=== PATIENT | female | born 1965 | race American Indian/Alaskan Native ===

== ENCOUNTER 2016-05-24 10:21 | Emergency (ER) | payer OTHER ==
[2016-05-24 10:21] VITALS: BMI 46.1
[2016-05-24] MEDS ORDERED: DiphenhydrAMINE 50 mg/ml Inj IVP STA (10:37)
--- NOTE | 2016-05-24 10:42 | ED PDOC ---
Arrival/HPI - General Chief Complaint: Headache Time Seen by Provider: 05/24/16 10:23 Historian: Patient - History of Present Illness Narrative History of Present Illness (Text): 05/24/16 10:38 Brittnee Lozoya is a 51 year old female, with a history of asthma, presents to emergency department complaining of frontal headache associated with mild nausea for the past 3 days. Reports that pain is worse immediately after waking up in the mornings. Notes she has experienced migraine headache in her childhood, Denies any fever, chills, dizziness, vision changes, chest pain, shortness of breath, vomiting, diarrhea, urinary symptoms or any other complaints at this time. 05/24/16 17:31 Time/Duration: < week (3 days ) Symptom Onset: Gradual Symptom Course: Unchanged Severity Level: Mild Activities at Onset: Light Past Medical History - Provider Review Nursing Documentation Reviewed: Yes - Infectious Disease Hx of Infectious Diseases: None - Pulmonary Hx Asthma: Yes (mild) - Psychiatric Hx Substance Use: No - Anesthesia Hx Anesthesia Reactions: No Hx Malignant Hyperthermia: No Family/Social History - Physician Review Nursing Documentation Reviewed: Yes Family/Social History: No Known Family HX Smoking Status: Never Smoked Hx Alcohol Use: No Hx Substance Use: No Allergies/Home Meds Allergies/Adverse Reactions: Allergies No Known Allergies Allergy (Verified 12/01/15 07:19) Review of Systems - Physician Review All systems were reviewed & negative as marked: Yes - Review of Systems Constitutional: Normal. absent: Fatigue, Fevers Eyes: Normal. absent: Vision Changes Respiratory: Normal. absent: SOB, Cough Cardiovascular: Normal. absent: Chest Pain Gastrointestinal: Nausea. absent: Abdominal Pain, Diarrhea, Vomiting Neurological: Headache. absent: Dizziness, Focal Weakness Psychiatric: Normal Physical Exam Vital Signs Reviewed: Yes Vital Signs Temp Pulse Resp BP Pulse Ox 05/24/16 12:00 98.0 F 69 18 128/76 99 05/24/16 11:24 75 18 131/89 98 05/24/16 10:21 98.3 F 79 16 133/93 H 98 Temperature: Afebrile Blood Pressure: Normal Pulse: Regular Respiratory Rate: Normal Appearance: Positive for: Well-Appearing, Non-Toxic, Comfortable Pain Distress: None Mental Status: Positive for: Alert and Oriented X 3 - Systems Exam Head: Present: Atraumatic, Normocephalic Pupils: Present: PERRL Extroacular Muscles: Present: EOMI Conjunctiva: Present: Normal Respiratory/Chest: Present: Clear to Auscultation, Good Air Exchange. No: Respiratory Distress, Accessory Muscle Use Cardiovascular: Present: Regular Rate and Rhythm, Normal S1, S2. No: Murmurs Abdomen: Present: Normal Bowel Sounds. No: Tenderness, Distention, Peritoneal Signs Neurological: Present: GCS=15, CN II-XII Intact, Speech Normal, Motor Func Grossly Intact, Normal Sensory Function Skin: Present: Warm, Dry, Normal Color. No: Rashes Psychiatric: Present: Alert, Oriented x 3, Normal Insight, Normal Concentration Medical Decision Making ED Course and Treatment: 05/24/16 10:43 Impression: A 51 year old female who presents to the emergency department complaining of frontal headache associated with mild nausea for past 3 days. Plan: -- CT Head -- Labs -- Benadryl -- Reglan -- HCG -- Reassess and disposition Progress Notes: 05/24/16 11:48 CT Head results reviewed: Impression: Normal CT of head 05/24/16 12:14 pt reassesed. no thunderclap features. pain resolved. labs, head ct neg. pt asking for d/c, rather than further observation in er. ambulatory, neuro intact. outpt f/u and return precautions advised - Lab Interpretations Lab Results: 05/24/16 11:10 05/24/16 11:10 Lab Results 05/24/16 11:10: WBC 7.9, RBC 4.01, Hgb 11.3 L, Hct 33.7 L, MCV 84.0, MCH 28.2, MCHC 33.5, RDW 13.9, Plt Count 290, MPV 8.5, Gran % 66.5, Lymph % (Auto) 26.6, [place] % (Auto) 6.0, Eos % (Auto) 0.8 L, Baso % (Auto) 0.1, Gran # 5.24, Lymph # 2.1, [place] # 0.5, Eos # 0.1, Baso # 0.01, PT 10.9, INR 1.01, APTT 28.8, Sodium 136, Potassium 4.0, Chloride 101, Carbon Dioxide 27, Anion Gap 12, BUN 11, Creatinine 0.7, Est GFR ( Amer) > 60, Est GFR (Non-Af Amer) > 60, Random Glucose 104, Calcium 8.7, Total Bilirubin 0.7, AST 26, ALT 10, Alkaline Phosphatase 52, Total Protein 7.5, Albumin 3.7, Globulin 3.8, Albumin/Globulin Ratio 1.0 L 05/24/16 10:50: Urine HCG, Qual Negative I have reviewed the lab results: Yes - RAD Interpretation Narrative RAD Interpretations (Text): PROCEDURE: CT HEAD WITHOUT CONTRAST. FINDINGS: HEMORRHAGE: No intracranial hemorrhage. BRAIN: No mass effect or edema. No atrophy or chronic microvascular ischemic changes. VENTRICLES: Unremarkable. No hydrocephalus. CALVARIUM: Unremarkable. PARANASAL SINUSES: Unremarkable as visualized. No significant inflammatory changes. MASTOID AIR CELLS: Unremarkable as visualized. No inflammatory changes. OTHER FINDINGS: None. IMPRESSION: Normal CT of the Head. 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 - Medication Orders Current Medication Orders: Discontinued Medications Diphenhydramine HCl (Benadryl) 25 mg IVP STAT STA Stop: 05/24/16 10:38 Last Admin: 05/24/16 11:37 Dose: 25 MG IVP Administration Document 05/24/16 11:37 EQ (Rec: 05/24/16 11:37 EQ [facility] [id number]) Charges for Administration # of IVP Administrations 1 Metoclopramide HCl 10 mg/ (Sodium Chloride) 52 mls @ 200 mls/hr IV STAT STA Stop: 05/24/16 10:52 Last Admin: 05/24/16 11:37 Dose: 200 MLS/HR eMAR Start Stop Document 05/24/16 11:37 EQ (Rec: 05/24/16 11:37 EQ [facility] [id number]) Intravenous Solution Start Date 05/24/16 Start Time 11:37 Metoclopramide HCl (Reglan) Confirm Administered Dose 10 mg .ROUTE .STK-MED ONE Stop: 05/24/16 10:51 Last Admin: 05/24/16 11:37 Dose: - Scribe Statement The provider has reviewed the documentation as recorded by the Mushtaq Rodriguez Provider Attestation: All medical record entries made by the Nicolasibamairani were at my direction and personally dictated by me. I have reviewed the chart and agree that the record accurately reflects my personal performance of the history, physical exam, medical decision making, and the department course for this patient. I have also personally directed, reviewed, and agree with the discharge instructions and disposition. Disposition/Present on Arrival - Present on Arrival Any Indicators Present on Arrival: No History of DVT/PE: No History of Uncontrolled Diabetes: No Urinary Catheter: No History of Decub. Ulcer: No History Surgical Site Infection Following: None - Disposition Have Diagnosis and Disposition been Completed?: Yes Diagnosis: Headache Disposition: HOME/ ROUTINE Disposition Time: 12:15 Condition: STABLE Discharge Instructions (ExitCare): Acute Headache (ED) Additional Instructions: please follow up with your doctor. return to er with worsening symptoms or concerns. Prescriptions: Acetaminophen/Butalbital/Caf [Fioricet] 1 tab PO Q8 PRN #20 tab PRN Reason: Headache Referrals: PCP,NO [Primary Care Provider] - Follow up with primary
--- NOTE | 2016-05-24 11:16 | CT ---
PROCEDURE: CT HEAD WITHOUT CONTRAST. HISTORY: sosa COMPARISON: None available. TECHNIQUE: Axial computed tomography images were obtained through the head/brain without intravenous contrast. This CT exam was performed using one or more of the following dose reduction techniques: Automated exposure control, adjustment of the mA and/or kV according to patient size, and/or use of iterative reconstruction technique. Radiation dose: Total exam DLP = 725 mGy-cm. FINDINGS: HEMORRHAGE: No intracranial hemorrhage. BRAIN: No mass effect or edema. No atrophy or chronic microvascular ischemic changes. VENTRICLES: Unremarkable. No hydrocephalus. CALVARIUM: Unremarkable. PARANASAL SINUSES: Unremarkable as visualized. No significant inflammatory changes. MASTOID AIR CELLS: Unremarkable as visualized. No inflammatory changes. OTHER FINDINGS: None. IMPRESSION: Normal CT of the Head.
[2016-05-24 11:24] VITALS: RESP 18
[2016-05-24 11:47] LABS: ADD MANUAL DIFF? NO
[2016-05-24 11:51] LABS: BASO # 0.01 K/mm3 (0.0-2.0); BASO % 0.1 % (0.0-3.0); EOS # 0.1 (0.0-0.7); EOS % 0.8 % (1.5-5.0); GRAN # 5.24 (1.4-6.5); GRAN % 66.5 % (50.0-68.0); HEMATOCRIT 33.7 % (36.0-48.0); LYMPH # 2.1 (1.2-3.4); LYMPH % 26.6 % (22.0-35.0); MEAN CORPUSCULAR HEMOGLOBIN 28.2 pg (25.0-35.0); MEAN CORPUSCULAR HGB CONC 33.5 g/dl (31.0-37.0); MEAN PLATELET VOLUME 8.5 fl (7.0-11.0); MONO # 0.5 (0.1-0.6); PLATELET COUNT 290 10^3/uL (120.0-450.0); RED CELL DISTRIBUTION WIDTH 13.9 % (11.5-14.5); WHITE BLOOD COUNT 7.9 10^3/ul (4.5-11.0)
[2016-05-24 11:59] LABS: INR 1.01 (0.93-1.08); PARTIAL THROMBOPLASTIN TIME 28.8 Seconds (23.7-30.8)
[2016-05-24 12:01] LABS: ALKALINE PHOSPHATASE 52 U/L (38-133); ALT/SGPT 10 U/L (7-56); AST/SGOT 26 U/L (15-39); BILIRUBIN,TOTAL 0.7 mg/dL (0.2-1.3); BLOOD UREA NITROGEN 11 mg/dL (7-21); CALCIUM 8.7 mg/dL (8.4-10.5); CARBON DIOXIDE 27 mmol/L (21-33); CHLORIDE 101 mmol/L (98-107); GFR AFRICAN-AMERICAN > 60; GLUCOSE,RANDOM 104 mg/dL (70-110); SODIUM 136 mmol/L (132-148); TOTAL PROTEIN 7.5 g/dL (5.8-8.3)
[2016-05-24 12:21] VITALS: BP 128/76; PULSE 69; TEMP 98; O2SAT 99
== END 2016-05-24 12:21 | disposition home or self-care (01) ==
LOC: ED 10:21
DX: R51 Headache (principal)
CPT/HCPCS: 70450; 80053; 84703; 85025; 85610; 85730; 96374; 99285; J1200; J2765

== ENCOUNTER 2016-08-01 13:48 | Emergency (ER) | payer OTHER ==
[2016-08-01 13:49] VITALS: BMI 46.1
--- NOTE | 2016-08-01 14:11 | ED PDOC ---
Arrival/HPI - General Chief Complaint: ENT Problem Time Seen by Provider: 08/01/16 13:49 Historian: Patient - History of Present Illness Time/Duration: Other (1 day) Symptom Onset: Gradual Symptom Course: Worsening Severity Level: Mild Activities at Onset: Rest Associated Symptoms (Text): 08/01/16 14:09 Patient complains of a sore throat beginning yesterday. No cough congestion or URI. No fever. No dysphagia. Past Medical History - Infectious Disease Hx of Infectious Diseases: None - Reproductive Menopause: Yes - Cardiac Hx Cardiac Disorders: No - Pulmonary Hx Asthma: Yes (mild) - Neurological Hx Neurological Disorder: No - HEENT Hx HEENT Disorder: No - Renal Hx Renal Disorder: No - Endocrine/Metabolic Hx Endocrine Disorders: No - Hematological/Oncological Hx Blood Disorders: No - Integumentary Hx Dermatological Disorder: No - Musculoskeletal/Rheumatological Hx Musculoskeletal Disorders: No - Gastrointestinal Hx Gastrointestinal Disorders: No - Genitourinary/Gynecological Hx Genitourinary Disorders: No - Psychiatric Hx Psychophysiologic Disorder: No Hx Substance Use: No - Anesthesia Hx Anesthesia Reactions: No Hx Malignant Hyperthermia: No Family/Social History - Physician Review Nursing Documentation Reviewed: Yes Family/Social History: Unknown Family HX Smoking Status: Never Smoked Hx Alcohol Use: No Hx Substance Use: No Allergies/Home Meds Allergies/Adverse Reactions: Allergies No Known Allergies Allergy (Verified 08/01/16 14:00) Review of Systems - Physician Review All systems were reviewed & negative as marked: Yes Physical Exam Vital Signs Temp Pulse Resp BP Pulse Ox 08/01/16 14:01 99.0 F 93 H 16 148/90 97 Temperature: Afebrile Blood Pressure: Normal Pulse: Regular Respiratory Rate: Normal Appearance: Positive for: Well-Appearing, Non-Toxic, Comfortable Pain Distress: None Mental Status: Positive for: Alert and Oriented X 3 - Systems Exam Pupils: Present: PERRL Extroacular Muscles: Present: EOMI Conjunctiva: Present: Normal Ears: Present: NORMAL TM, Normal Canal. No: Erythema Mouth: Present: Moist Mucous Membranes Pharnyx: Present: ERYTHEMA. No: EXUDATE, TONSILS ENLARGED, Peritonsilar Swelling, Soft Palate/Uvular Edema Neck: Present: Normal Range of Motion. No: Lymphadenopathy Respiratory/Chest: Present: Clear to Auscultation, Good Air Exchange. No: Respiratory Distress, Accessory Muscle Use Cardiovascular: Present: Regular Rate and Rhythm, Normal S1, S2. No: Murmurs Skin: Present: Warm, Dry, Normal Color. No: Rashes Disposition/Present on Arrival - Present on Arrival Any Indicators Present on Arrival: No History of DVT/PE: No History of Uncontrolled Diabetes: No Urinary Catheter: No History of Decub. Ulcer: No History Surgical Site Infection Following: None - Disposition Have Diagnosis and Disposition been Completed?: Yes Diagnosis: Pharyngitis Disposition Time: 14:10 Patient Plan: Discharge Condition: GOOD Discharge Instructions (ExitCare): Pharyngitis (ED) Additional Instructions: Tylenol or Advil as directed on bottle as needed. Cepacol or Cepastat as directed on bottle as needed. Symptomatic treatment. Follow-up with PMD. Follow up in ER as needed. Prescriptions: Amoxicillin [Amoxil 250 mg Cap] 250 mg PO TID #21 cap
[2016-08-01 14:13] VITALS: BP 148/90; PULSE 93; RESP 16; TEMP 99; O2SAT 97
== END 2016-08-01 14:19 | disposition home or self-care (01) ==
LOC: ED 13:48
DX: J02.9 Acute pharyngitis, unspecified (principal)

== ENCOUNTER 2017-01-08 18:27 | Emergency (ER) | payer OTHER ==
[2017-01-08 18:27] VITALS: BMI 46.1
[2017-01-08 18:50] VITALS: O2SAT 98
[2017-01-08] MEDS ORDERED: DiphenhydrAMINE 50 mg/ml Inj IVP STA (19:48)
[2017-01-08] MEDS ORDERED: Sodium Chloride 0.9% 1,000 ML IV SCH (20:00)
[2017-01-08 20:41] LABS: BASO # 0.01 K/mm3 (0.0-2.0); BASO % 0.1 % (0.0-3.0); EOS % 0.4 % (1.5-5.0); GRAN # 5.23 (1.4-6.5); GRAN % 65.3 % (50.0-68.0); LYMPH # 2.2 (1.2-3.4); LYMPH % 27.6 % (22.0-35.0); MEAN CELL VOLUME 87.1 fl (80.0-105.0); MEAN CORPUSCULAR HEMOGLOBIN 28.5 pg (25.0-35.0); MEAN CORPUSCULAR HGB CONC 32.7 g/dl (31.0-37.0); MEAN PLATELET VOLUME 8.7 fl (7.0-11.0); MONO # 0.5 (0.1-0.6); MONO % 6.6 % (1.0-6.0); RED CELL DISTRIBUTION WIDTH 13.8 % (11.5-14.5)
[2017-01-08 20:50] LABS: ALB/GLOB RATIO 1.1 (1.1-1.8); ALKALINE PHOSPHATASE 58 U/L (38-126); ALT/SGPT 28 U/L (7-56); AST/SGOT 32 U/L (14-36); BILIRUBIN,TOTAL 0.6 mg/dL (0.2-1.3); BLOOD UREA NITROGEN 14 mg/dL (7-21); CALCIUM 9.5 mg/dL (8.4-10.5); CARBON DIOXIDE 33 mmol/L (21-33); CHLORIDE 103 mmol/L (98-107); GFR AFRICAN-AMERICAN > 60; GLUCOSE,RANDOM 96 mg/dL (70-110); SODIUM 141 mmol/L (132-148); TOTAL PROTEIN 8.1 g/dL (5.8-8.3)
[2017-01-08 21:41] LABS: URINE BILIRUBIN NEGATIVE (NEGATIVE); URINE BLOOD NEGATIVE (NEGATIVE); URINE GLUCOSE (UA) NEGATIVE (NEGATIVE); URINE KETONE NEGATIVE (NEGATIVE); URINE LEUKOCYTE ESTERASE NEGATIVE Leu/uL (NEGATIVE); URINE PROTEIN NEGATIVE mg/dL (<30 mg/dL); URINE UROBILINOGEN 0.2 E.U./dL (<1 E.U./dL)
[2017-01-08 21:43] LABS: URINE APPEARANCE CLEAR (CLEAR); URINE COLOR YELLOW (YELLOW)
--- NOTE | 2017-01-08 23:49 | ED PDOC ---
Arrival/HPI - General Chief Complaint: Psychiatric Evaluation Time Seen by Provider: 01/08/17 19:21 Historian: Patient - History of Present Illness Narrative History of Present Illness (Text): 01/09/17 19:30 51 year old female, whose past medical history includes migraines (as a child), presents to the emergency department complaining of intermittent right sided headaches that occurs mostly at night. Patient describes the headache as a "something sticking" on the right side sikhism associated with numbness to the face with photophobia and phonophobia. Patient reports taking ibuprofen with no relief. Patient states to have nausea, but denies any fever, chills, head trauma , or any other complaints. Patient also presents to the emergency department complaining of feeling depressed for several months. Patient reports no past psych evacuations or medications before. Patient denies any homicidal ideations, suicidal ideations, hallucinations, family medical history, or any other complaints. PMD: None. Symptom Course: Intermittent Quality: Other (Headache:"Something Sticking") Activities at Onset: Light Context: Home Past Medical History - Provider Review Nursing Documentation Reviewed: Yes - Infectious Disease Hx of Infectious Diseases: None - Reproductive Menopause: No - Cardiac Hx Cardiac Disorders: No - Pulmonary Hx Asthma: Yes (mild) - Neurological Hx Neurological Disorder: No - HEENT Hx HEENT Disorder: No - Renal Hx Renal Disorder: No - Endocrine/Metabolic Hx Endocrine Disorders: No - Hematological/Oncological Hx Blood Disorders: No - Integumentary Hx Dermatological Disorder: No - Musculoskeletal/Rheumatological Hx Musculoskeletal Disorders: No - Gastrointestinal Hx Gastrointestinal Disorders: No - Genitourinary/Gynecological Hx Genitourinary Disorders: No - Psychiatric Hx Psychophysiologic Disorder: No Hx Substance Use: No - Anesthesia Hx Anesthesia Reactions: No Hx Malignant Hyperthermia: No Family/Social History - Physician Review Nursing Documentation Reviewed: Yes Family/Social History: No Known Family HX Smoking Status: Never Smoked Hx Alcohol Use: No Hx Substance Use: No Allergies/Home Meds Allergies/Adverse Reactions: Allergies No Known Allergies Allergy (Verified 08/01/16 14:00) Review of Systems - Review of Systems Constitutional: absent: Fevers, Other (Chills) Eyes: Photophobia ENT: Other (Phonophobia) Gastrointestinal: Nausea Neurological: Headache, Other (Numbness to the face) Psychiatric: Depression. absent: Suicidal Ideation (/ Homicidial Ideation), Other (Hallcuination ) Physical Exam Vital Signs Reviewed: Yes Vital Signs Temp Pulse Resp BP Pulse Ox 01/09/17 00:48 98.3 F 70 18 143/93 H 98 01/08/17 18:33 97.8 F 66 16 157/94 H 98 Temperature: Afebrile Blood Pressure: Hypertensive Pulse: Regular Respiratory Rate: Normal Appearance: Positive for: Well-Appearing, Non-Toxic Pain Distress: None Mental Status: Positive for: Alert and Oriented X 3 - Systems Exam Head: Present: Atraumatic, Normocephalic Pupils: Present: PERRL Extroacular Muscles: Present: EOMI Conjunctiva: Present: Normal Mouth: Present: Moist Mucous Membranes Neck: Present: Normal Range of Motion Respiratory/Chest: Present: Clear to Auscultation, Good Air Exchange. No: Respiratory Distress, Accessory Muscle Use Cardiovascular: Present: Regular Rate and Rhythm, Normal S1, S2. No: Murmurs Abdomen: Present: Normal Bowel Sounds. No: Tenderness, Distention, Peritoneal Signs Back: Present: Normal Inspection Upper Extremity: Present: Normal Inspection. No: Cyanosis, Edema Lower Extremity: Present: Normal Inspection. No: Edema Neurological: Present: GCS=15, CN II-XII Intact, Speech Normal Skin: Present: Warm, Dry, Normal Color. No: Rashes Psychiatric: Present: Alert, Oriented x 3, Normal Insight, Normal Concentration Medical Decision Making ED Course and Treatment: 01/08/17 19: 30 Impression: 51 year old female presents complaining of right sided headaches and feeling depressed for several months. Pt has no symptoms or psych hx. Pt past medical history of migraines. Plan: -- CT Head W/O contrast -- Labs -- EKG -- Chest X-ray -- Benadryl -- Reglan -- IV Fluid -- POC Urine Test -- Urinalysis -- Reassess and disposition Progress Notes: EKG : NSR at 69 BPM with no acute changes, as read by GERSON. CXR : NAD, as read by GERSON. Lab results reviewed and are within normal limits. CT head shows no acute findings. On reevaluation, patient reports significant improvement of her headache. On exam, patient is laying in bed comfortably in no acute distress, repeat neuro exam shows no acute focal findings. Based on diagnostic results, patient is medically cleared for PES evaluation. Patient seen and evaluated by PES. After evaluation, PES recommends outpatient psychiatric follow-up for the patient. Patient instructed to follow up with primary care referral and with outpatient psychiatric referral provided by PES in 1-2 days without fail. Advised to take medication as prescribed for her headaches. Patient advised that the headaches are likely migraine headaches. Advised to return to the emergency room at any time for any new or worsening symptoms. Patient states she fully agrees with and understands discharge instructions. States that she agrees with the plan and disposition. Verbalized and repeated discharge instructions and plan. I have given the patient opportunity to ask any additional questions. - Lab Interpretations Lab Results: 01/08/17 20:29 01/08/17 20:29 Lab Results 01/08/17 20:54: Urine Opiates Screen Negative, Urine Methadone Screen Negative, Ur Barbiturates Screen Negative, Ur Phencyclidine Scrn Negative, Ur Amphetamines Screen Negative, U Benzodiazepines Scrn Negative, U Oth Cocaine Metabols Negative, U Cannabinoids Screen Negative 01/08/17 20:54: Urine Color Yellow, Urine Appearance Clear, Urine pH 7.0, Ur Specific [place] 1.020, Urine Protein Negative, Urine Glucose (UA) Negative, Urine Ketones Negative, Urine Blood Negative, Urine Nitrate Negative, Urine Bilirubin Negative, Urine Urobilinogen 0.2, Ur Leukocyte Esterase Negative 01/08/17 20:29: Alcohol, Quantitative < 10 01/08/17 20:29: Sodium 141, Potassium 4.0, Chloride 103, Carbon Dioxide 33, Anion Gap 9 L, BUN 14, Creatinine 0.7, Est GFR ( Amer) > 60, Est GFR (Non -Af Amer) > 60, Random Glucose 96, Calcium 9.5, Total Bilirubin 0.6, AST 32, ALT 28, Alkaline Phosphatase 58, Total Protein 8.1, Albumin 4.2, Globulin 3.9, Albumin/Globulin Ratio 1.1 01/08/17 20:29: WBC 8.0, RBC 4.25, Hgb 12.1, Hct 37.0, MCV 87.1, MCH 28.5, MCHC 32.7, RDW 13.8, Plt Count 257, MPV 8.7, Gran % 65.3, Lymph % (Auto) 27.6, [place] % (Auto) 6.6 H, Eos % (Auto) 0.4 L, Baso % (Auto) 0.1, Gran # 5.23, Lymph # 2.2 , [place] # 0.5, Eos # 0.0, Baso # 0.01 I have reviewed the lab results: Yes - RAD Interpretation Narrative RAD Interpretations (Text): 01/09/17 02:24 CT HEAD w/o contrast : FINDINGS: Brain: Ventricles are normal in size and configuration. There is no midline shift. There are no intraaxial or extra-axial mass lesions or areas of hemorrhage. There are no abnormal fluid collections. Yen-white differentiation is maintained. Ventricles: See above. Bones: Cranial vault is intact. Soft tissues: unremarkable Sinuses: There is no acute sinusitis. Ears and mastoids: Middle ears and mastoids are unremarkable Orbits: Orbital contents are unremarkable. IMPRESSION: No acute intracranial abnormality Dictated and Authenticated by: Bonnie Garnica MD Radiology Orders: 01/08/17 19:46 HEAD W/O CONTRAST [CT] Stat 01/08/17 21:01 CHEST PORTABLE [RAD] Stat - EKG Interpretation Interpreted by ED Physician: Yes Type: 12 lead EKG - Medication Orders Current Medication Orders: Discontinued Medications Diphenhydramine HCl (Benadryl) 25 mg IVP STAT STA Stop: 01/08/17 19:49 Last Admin: 01/08/17 20:57 Dose: 25 mg IVP Administration Document 01/08/17 20:57 MR (Rec: 01/08/17 20:57 MR [id number]) Charges for Administration # of IVP Administrations 1 Sodium Chloride (Sodium Chloride 0.9%) 1,000 mls @ 200 mls/hr IV .Q5H ARVIN Last Admin: 01/08/17 20:57 Dose: 200 mls/hr eMAR Start Stop Document 01/08/17 20:57 MR (Rec: 01/08/17 20:57 MR [id number]) Intravenous Solution Start Date 01/08/17 Start Time 20:57 Metoclopramide HCl (Reglan) 10 mg IVP STAT STA Stop: 01/08/17 19:49 Last Admin: 01/08/17 20:58 Dose: 10 mg IVP Administration Document 01/08/17 20:58 MR (Rec: 01/08/17 20:58 MR [id number]) Charges for Administration # of IVP Administrations 1 - PA / [employer] / Resident Statement MD/DO has reviewed & agrees with the documentation as recorded. - Scribe Statement The provider has reviewed the documentation as recorded by the Mushtaq Pitts Provider Scribe Attestation: All medical record entries made by the Scribe were at my direction and personally dictated by me. I have reviewed the chart and agree that the record accurately reflects my personal performance of the history, physical exam, medical decision making, and the department course for this patient. I have also personally directed, reviewed, and agree with the discharge instructions and disposition. Disposition/Present on Arrival - Present on Arrival Any Indicators Present on Arrival: No History of DVT/PE: No History of Uncontrolled Diabetes: No Urinary Catheter: No History of Decub. Ulcer: No History Surgical Site Infection Following: None - Disposition Have Diagnosis and Disposition been Completed?: Yes Diagnosis: Headache, Depression Disposition: HOME/ ROUTINE Disposition Time: 00:00 Patient Plan: Discharge Condition: STABLE Discharge Instructions (ExitCare): Depression (ED), Acute Headache (ED) Print Language: PAKISTANI Additional Instructions: Thank you for letting us take care of you today. You were treated for headache, depression. The emergency medical care you received today was directed at your acute symptoms. If you were prescribed any medication, please fill it and take as directed. It may take several days for your symptoms to resolve. Return to the Emergency Department if your symptoms worsen, do not improve, or if you have any other problems. Please contact your doctor in 2 days for re-evaluation and follow up / or call one of the physicians/clinics you have been referred to that are listed on the Patient Visit Information form that is included in your discharge packet. Bring any paperwork you were given at discharge with you along with any medications you are taking to your follow up visit. Our treatment cannot replace ongoing medical care by a primary care provider (PCP) outside of the emergency department. Thank you for allowing the [facility] team to be part of your care today. Prescriptions: Metoclopramide HCl [Reglan] 10 mg PO QID PRN #20 tablet PRN Reason: Headache Referrals: Chloe Reed MD [Staff Provider] - Follow up with primary Forms: [employer] (Somali), WORK NOTE
--- NOTE | 2017-01-09 | CT ---
EXAM: CT Head Without Intravenous Contrast EXAM DATE/TIME: 01/08/2017 7:46 PM CLINICAL HISTORY: 51 years old, female; Pain; Headache; Migraine; Aura effect not specified TECHNIQUE: Axial computed tomography images of the head/brain without intravenous contrast. All CT scans at this facility use one or more dose reduction techniques, viz.: automated exposure control; ma/kV adjustment per patient size (including targeted exams where dose is matched to indication; i.e. head); or iterative reconstruction technique. COMPARISON: CT - HEAD W/O CONTRAST 2016-05-24 10:55 FINDINGS: Brain: Ventricles are normal in size and configuration. There is no midline shift. There are no intra-axial or extra-axial mass lesions or areas of hemorrhage. There are no abnormal fluid collections. Yen-white differentiation is maintained. Ventricles: See above. Bones: Cranial vault is intact. Soft tissues: unremarkable Sinuses: There is no acute sinusitis. Ears and mastoids: Middle ears and mastoids are unremarkable Orbits: Orbital contents are unremarkable. IMPRESSION: No acute intracranial abnormality
[2017-01-09 00:49] VITALS: BP 143/93; PULSE 70; RESP 18; TEMP 98.3
--- NOTE | 2017-01-09 17:54 | RAD ---
HISTORY: PES EVAL COMPARISON: No prior. FINDINGS: LUNGS: No active pulmonary disease. PLEURA: No significant pleural effusion identified, no pneumothorax apparent. CARDIOVASCULAR: Normal. OSSEOUS STRUCTURES: No significant abnormalities. VISUALIZED UPPER ABDOMEN: Normal. OTHER FINDINGS: None. IMPRESSION: No active disease.
--- NOTE | 2017-01-09 23:20 | CARD ---
APPROVED REPORT EKG Measurement Heart [id number] <Conclusion> Normal sinus rhythm Normal ECG
== END 2017-01-09 00:50 | disposition home or self-care (01) ==
LOC: ED 18:27
DX: R51 Headache (principal); F32.9 Major depressive disorder, single episode, unspecified
CPT/HCPCS: 70450; 71010; 80053; 80320; 80324; 80345; 80346; 80349; 80353; 80358; 80361; 81003; 83992; 85025; 90791; 93005; 96374; 96375; 99284; J1200; J2765; J7040

== ENCOUNTER 2017-05-26 22:11 | Emergency (ER) | payer OTHER ==
[2017-05-26 22:11] VITALS: BMI 45.3
[2017-05-26 22:27] VITALS: PULSE 70; RESP 18; TEMP 97.8; O2SAT 97
--- NOTE | 2017-05-26 22:40 | ED PDOC ---
Arrival/HPI - General Chief Complaint: Back Pain Time Seen by Provider: 05/26/17 22:34 Historian: Patient - History of Present Illness Narrative History of Present Illness (Text): 05/26/17 22:40 Brittnee Lozoya is a 52 year old female who presents to the Emergency department complaining of left flank pain. Patient states she developed sudden onset of left flank pain 1-2 hours prior to arrival. Patient denies any recent trauma/injury but notes she bent over to tilt a tub full of water earlier today unsure if its related. Patient denies any urinary symptoms, abdominal pain, nausea, vomiting, fever, chills, saddle paresthesia, urinary/bowel incontinence , or any other complaints. 05/27/17 05:39 Time/Duration: 1-3 hours Symptom Onset: Sudden Symptom Course: Unchanged Activities at Onset: Light Context: Home Past Medical History - Provider Review Nursing Documentation Reviewed: Yes - Infectious Disease Hx of Infectious Diseases: None - Cardiac Hx Cardiac Disorders: No - Pulmonary Hx Respiratory Disorders: Yes Hx Asthma: Yes (mild) - Neurological Hx Neurological Disorder: No - HEENT Hx HEENT Disorder: No - Renal Hx Renal Disorder: No - Endocrine/Metabolic Hx Endocrine Disorders: No - Hematological/Oncological Hx Blood Disorders: No - Integumentary Hx Dermatological Disorder: No - Musculoskeletal/Rheumatological Hx Musculoskeletal Disorders: No - Gastrointestinal Hx Gastrointestinal Disorders: No - Genitourinary/Gynecological Hx Genitourinary Disorders: No - Psychiatric Hx Psychophysiologic Disorder: No Hx Substance Use: No - Anesthesia Hx Anesthesia: No Hx Anesthesia Reactions: No Hx Malignant Hyperthermia: No Family/Social History - Physician Review Nursing Documentation Reviewed: Yes Family/Social History: Unknown Family HX Smoking Status: Never Smoked Hx Alcohol Use: No Hx Substance Use: No Allergies/Home Meds Allergies/Adverse Reactions: Allergies No Known Allergies Allergy (Verified 05/26/17 22:28) Review of Systems - Physician Review All systems were reviewed & negative as marked: Yes - Review of Systems Constitutional: Normal. absent: Fevers Eyes: Normal ENT: Normal Respiratory: Normal. absent: SOB, Cough Cardiovascular: Normal. absent: Chest Pain Gastrointestinal: Normal. absent: Abdominal Pain, Diarrhea, Nausea, Vomiting Genitourinary Female: Normal. absent: Dysuria, Frequency, Hematuria, Urine Output Changes Musculoskeletal: Back Pain. absent: Neck Pain Skin: Normal. absent: Rash Neurological: Normal. absent: Headache, Dizziness Endocrine: Normal Hemo/Lymphatic: Normal Psychiatric: Normal Physical Exam Vital Signs Reviewed: Yes Vital Signs Temp Pulse Resp BP Pulse Ox 05/27/17 00:24 147/85 05/26/17 22:27 97.8 F 70 18 149/92 H 97 Temperature: Afebrile Blood Pressure: Normal Pulse: Regular Respiratory Rate: Normal Appearance: Positive for: Well-Appearing, Non-Toxic, Comfortable, Other ( Morbidly obese) Mental Status: Positive for: Alert and Oriented X 3 - Systems Exam Head: Present: Atraumatic, Normocephalic Pupils: Present: PERRL Extroacular Muscles: Present: EOMI Conjunctiva: Present: Normal Mouth: Present: Moist Mucous Membranes Neck: Present: Normal Range of Motion Respiratory/Chest: Present: Clear to Auscultation, Good Air Exchange. No: Respiratory Distress, Accessory Muscle Use Cardiovascular: Present: Regular Rate and Rhythm, Normal S1, S2. No: Murmurs Abdomen: No: Tenderness, Distention, Peritoneal Signs Back: Present: Paraspinal Tenderness (Left flank pain) Upper Extremity: Present: Normal Inspection. No: Cyanosis, Edema Lower Extremity: Present: Normal Inspection. No: Edema Neurological: Present: GCS=15, CN II-XII Intact, Speech Normal Skin: Present: Warm, Dry, Normal Color. No: Rashes Psychiatric: Present: Alert, Oriented x 3, Normal Insight, Normal Concentration Medical Decision Making ED Course and Treatment: 05/26/17 22:40 Impression: 52 year old female complaining of sudden left flank pain 1-2 hour prior to arrival. Plan: -- CT Abdomen and Pelvis -- CXR -- Labs, lipase -- Urinalysis -- Toradol -- Reassess and disposition Progress Notes: 05/26/17 23:35 Chest X-ray reviewed, shows no acute processes. 05/27/17 02:27 CT Abdomen and Pelvis shows: The liver, spleen, gallbladder and pancreas appear grossly normal on this non- contrast study. No perinephric stranding. No hydronephrosis. No obstructing calculi. Colonic diverticulosis is present. A normal appendix is identified axial images 98 - 109, coronal image 64. There is a round 2.7 cm low attenuation structure in the left inguinal region with Hounsfeld units suggestive of complex fluid. The structure is not contiguous with bowel i.e. does not represent a bowel hernia. Lack of contrast is limiting. Either dedicated imaging with intravenous contrast or ultrasound may be helpful for further evaluation as well as correlation with exam. There is no stranding in the surrounding fat to suggest abscess or acute hematoma. Chronic hematoma would be possible as a vascular etiology. Congenital cyst or seroma would be within the differential diagnosis. The uterus appears grossly normal. IMPRESSION: Complex cystic structure in the left inguinal region as discussed above 05/27/17 02:52 Pt on re-assessment feels better, is not acute distress. Pt states she will wait 1 hour to see if pain returns. 05/27/17 03:23 CT Abdomen and Pelvis with IV shows: The cardiac silhouette is slightly prominent. The liver, spleen, pancreas, kidneys, gallbladder are normal. No aortic aneurysm or dissection. The bowel appears normal. A normal appendix is identified coronal images 62 through 65. Again seen is a rounded 2.7 cm complex cystic structure in the left inguinal region. Postcontrast images demonstrate no significant enhancement, thus vascular and neoplastic etiologies are felt unlikely. No surrounding enhancement to suggest abscess or inflammatory process. Congenital or acquired cyst would be likely. If this is the region of the patient's symptoms, followup may be helpful to assess for stability. The uterus appears normal. Scattered phleboliths are noted. IMPRESSION: Complex cystic structure in the left inguinal region as discussed above. 05/27/17 04:49 Transvaginal US shows: The uterus measures approximately 10 x 5 x 5 cm. The endometrium measures 12 mm. Multiple nabothian cysts are noted within the cervix. There is a possible 1.2 cm intramural right uterine fibroid. Nonvisualization of the ovaries. No significant free fluid. IMPRESSION: No acute findings. Pt resting comfortably, in no acute distress. Pt was notified of both CT and US results. Pt is stable for discharge. Pt instructed to follow up with physician or return if symptoms worsen or new concerning symptoms arise. - Lab Interpretations Lab Results: 05/26/17 23:01 05/26/17 23:01 Lab Results 05/26/17 23:01: Sodium 139, Potassium 3.8, Chloride 102, Carbon Dioxide 30, Anion Gap 11, BUN 13, Creatinine 0.8, Est GFR ( Amer) > 60, Est GFR (Non- Af Amer) > 60, Random Glucose 94, Calcium 9.7, Total Bilirubin 0.3, AST 26, ALT 20, Alkaline Phosphatase 65, Total Protein 7.8, Albumin 3.9, Globulin 3.9, Albumin/Globulin Ratio 1.0 L, Lipase 309 H 05/26/17 23:01: Urine Color Yellow, Urine Appearance Clear, Urine pH 6.0, Ur Specific W[place]ell 1.020, Urine Protein Negative, Urine Glucose (UA) Negative, Urine Ketones Negative, Urine Blood Negative, Urine Nitrate Negative, Urine Bilirubin Negative, Urine Urobilinogen 0.2, Ur Leukocyte Esterase Negative, Urine HCG, Qual Negative 05/26/17 23:01: PT 11.4, INR 1.00, APTT 36.9 H 05/26/17 23:01: WBC 8.9 D, RBC 4.16, Hgb 11.8 L, Hct 35.2 L, MCV 84.6, MCH 28.4 , MCHC 33.5, RDW 13.6, Plt Count 259, MPV 8.4, Gran % 60.2, Lymph % (Auto) 32.8 , Casey % (Auto) 5.8, Eos % (Auto) 1.1 L, Baso % (Auto) 0.1, Gran # 5.38, Lymph # (Auto) 2.9, Casey # (Auto) 0.5, Eos # (Auto) 0.1, Baso # (Auto) 0.01 I have reviewed the lab results: Yes - RAD Interpretation Radiology Orders: 05/26/17 22:41 ABD & PELVIS W/O PO OR IV CONT [CT] Stat 05/26/17 22:44 CXR [CHEST PORTABLE] [RAD] Stat 05/27/17 02:31 TRANSVAGINAL [US] Stat 05/27/17 02:32 ABD & PELVIS IV CONTRAST ONLY [CT] [place] Magistrate: ED Physician, Radiologist - Medication Orders Current Medication Orders: Discontinued Medications Hydromorphone HCl (Dilaudid) 0.5 mg IVP STAT STA Stop: 05/27/17 00:19 Last Admin: 05/27/17 00:26 Dose: 0.5 mg MAR Pain Assessment Document 05/27/17 00:26 SS (Rec: 05/27/17 00:28 SS [id number]) Pain Reassessment Is this a pain reassessment? Yes Sleep Is patient sleeping during reassessment? No Presence of Pain Presence of Pain Yes Pain Scale Used Pain Scale Used Numeric Location Left, Right or Bilateral Left Pain Location Body Site Back Description Description Constant Pain Behavior Moaning Grasping Site Rubbing Site Restlessness Facial Grimacing IVP Administration Document 05/27/17 00:26 SS (Rec: 05/27/17 00:28 SS [id number]) Charges for Administration # of IVP Administrations 1 Ketorolac Tromethamine (Toradol) 30 mg IVP STAT STA Stop: 05/26/17 22:52 Last Admin: 05/26/17 23:16 Dose: 30 mg MAR Pain Assessment Document 05/26/17 23:16 SS (Rec: 05/26/17 23:17 SS [id number]) Pain Reassessment Is this a pain reassessment? No Sleep Is patient sleeping during reassessment? No Presence of Pain Presence of Pain Yes Location Left, Right or Bilateral Left Description Description Constant Intensity of Pain at present 8 Pain Behavior Moaning Guarding Grasping Site Rubbing Site Restlessness IVP Administration Document 05/26/17 23:16 SS (Rec: 05/26/17 23:17 SS [id number]) Charges for Administration # of IVP Administrations 1 Morphine Sulfate (Morphine) 4 mg IVP STAT STA Stop: 05/26/17 23:30 Last Admin: 05/26/17 23:34 Dose: 4 mg MAR Pain Assessment Document 05/26/17 23:34 SS (Rec: 05/26/17 23:38 SS [id number]) Pain Reassessment Is this a pain reassessment? Yes Sleep Is patient sleeping during reassessment? No Presence of Pain Presence of Pain Yes Pain Scale Used Pain Scale Used Numeric Location Pain Location Body Site Back Description Pain Behavior Moaning Crying Guarding Rubbing Site Restlessness IVP Administration Document 05/26/17 23:34 SS (Rec: 05/26/17 23:38 SS [id number]) Charges for Administration # of IVP Administrations 1 - Scribe Statement The provider has reviewed the documentation as recorded by the Nicolasibamairani Liao Provider Scribe Attestation: All medical record entries made by the Scribe were at my direction and personally dictated by me. I have reviewed the chart and agree that the record accurately reflects my personal performance of the history, physical exam, medical decision making, and the department course for this patient. I have also personally directed, reviewed, and agree with the discharge instructions and disposition. Disposition/Present on Arrival - Present on Arrival Any Indicators Present on Arrival: No History of DVT/PE: No History of Uncontrolled Diabetes: No Urinary Catheter: No History of Decub. Ulcer: No History Surgical Site Infection Following: None - Disposition Have Diagnosis and Disposition been Completed?: Yes Diagnosis: Back pain, Cyst Disposition: HOME/ ROUTINE Disposition Time: 12:00 Condition: STABLE Additional Instructions: please discuss the results of your ct scan with your doctor/clinic. you may require further testing. return to any er with any concern. Prescriptions: Naproxen 500 mg PO BID PRN #14 tablet PRN Reason: Pain, Mild (1-3) Referrals: [facility] [Outside] - Follow up with primary [facility] [Outside] - Follow up with primary PCP,NO [Primary Care Provider] - Follow up with primary Marcus Boss MD [Staff Provider] - Follow up with primary Forms: [employer] (Czech)
[2017-05-26 23:14] LABS: BASO # 0.01 K/mm3 (0.0-2.0); BASO % 0.1 % (0.0-3.0); EOS # 0.1 (0.0-0.7); EOS % 1.1 % (1.5-5.0); GRAN # 5.38 (1.4-6.5); GRAN % 60.2 % (50.0-68.0); HEMOGLOBIN 11.8 g/dL (12.0-16.0); LYMPH # 2.9 (1.2-3.4); LYMPH % 32.8 % (22.0-35.0); MEAN CELL VOLUME 84.6 fl (80.0-105.0); MEAN CORPUSCULAR HEMOGLOBIN 28.4 pg (25.0-35.0); MEAN CORPUSCULAR HGB CONC 33.5 g/dl (31.0-37.0); MEAN PLATELET VOLUME 8.4 fl (7.0-11.0); MONO # 0.5 (0.1-0.6); MONO % 5.8 % (1.0-6.0); RBC 4.16 10^6/uL (3.5-6.1); RED CELL DISTRIBUTION WIDTH 13.6 % (11.5-14.5); WHITE BLOOD COUNT 8.9 10^3/ul (4.5-11.0)
[2017-05-26 23:16] LABS: URINE BILIRUBIN NEGATIVE (NEGATIVE); URINE BLOOD NEGATIVE (NEGATIVE); URINE GLUCOSE (UA) NEGATIVE (NEGATIVE); URINE LEUKOCYTE ESTERASE NEGATIVE Leu/uL (NEGATIVE); URINE PROTEIN NEGATIVE mg/dL (<30 mg/dL); URINE UROBILINOGEN 0.2 E.U./dL (<1 E.U./dL)
[2017-05-26 23:20] LABS: URINE APPEARANCE CLEAR (CLEAR); URINE COLOR YELLOW (YELLOW)
[2017-05-26 23:24] LABS: ALBUMIN 3.9 g/dL (3.0-4.8); ALT/SGPT 20 U/L (7-56); AST/SGOT 26 U/L (14-36); BLOOD UREA NITROGEN 13 mg/dL (7-21); CALCIUM 9.7 mg/dL (8.4-10.5); GFR AFRICAN-AMERICAN > 60; GFR NON-AFRICAN AMERICAN > 60; LIPASE 309 U/L (23-300)
[2017-05-26] MEDS ORDERED: Morphine 4 mg/ml ISec IVP STA (23:29)
[2017-05-26 23:31] LABS: HCG,QUALITATIVE URINE NEGATIVE (NEGATIVE)
[2017-05-26 23:32] LABS: PARTIAL THROMBOPLASTIN TIME 36.9 Seconds (25.1-36.5); PROTHROMBIN TIME 11.4 SECONDS (9.4-12.5)
[2017-05-27] MEDS ORDERED: HYDROmorphone 0.5 mg/0.5 ml ISec IVP STA (00:18)
[2017-05-27 00:24] VITALS: BP 147/85
--- NOTE | 2017-05-27 02:25 | CT ---
EXAM: CT Abdomen and Pelvis Without Intravenous Contrast EXAM DATE/TIME: 05/26/2017 10:41 PM CLINICAL HISTORY: 52 years old, female; Pain; Abdominal pain; Flank; Left; Additional info: Left flank pain TECHNIQUE: Axial computed tomography images of the abdomen and pelvis without intravenous contrast. All CT scans at this facility use one or more dose reduction techniques, viz.: automated exposure control; ma/kV adjustment per patient size (including targeted exams where dose is matched to indication; i.e. head); or iterative reconstruction technique. Coronal and sagittal reformatted images were created and reviewed. COMPARISON: No relevant prior studies available. FINDINGS: The liver, spleen, gallbladder and pancreas appear grossly normal on this non-contrast study. No perinephric stranding. No hydronephrosis. No obstructing calculi. Colonic diverticulosis is present. A normal appendix is identified axial images 98 - 109, coronal image 64. There is a round 2.7 cm low attenuation structure in the left inguinal region with Hounsfeld units suggestive of complex fluid. The structure is not contiguous with bowel i.e. does not represent a bowel hernia. Lack of contrast is limiting. Either dedicated imaging with intravenous contrast or ultrasound may be helpful for further evaluation as well as correlation with exam. There is no stranding in the surrounding fat to suggest abscess or acute hematoma. Chronic hematoma would be possible as a vascular etiology. Congenital cyst or seroma would be within the differential diagnosis. The uterus appears grossly normal. IMPRESSION: Complex cystic structure in the left inguinal region as discussed above.
--- NOTE | 2017-05-27 03:21 | CT ---
EXAM: CT Abdomen and Pelvis With Intravenous Contrast EXAM DATE/TIME: 05/27/2017 2:32 AM CLINICAL HISTORY: 52 years old, female; Pain; Abdominal pain; Flank; Left; Additional info: Abd pain repeat as per vrad ? cystic structure TECHNIQUE: Axial computed tomography images of the abdomen and pelvis with intravenous contrast. All CT scans at this facility use one or more dose reduction techniques, viz.: automated exposure control; ma/kV adjustment per patient size (including targeted exams where dose is matched to indication; i.e. head); or iterative reconstruction technique. Coronal and sagittal reformatted images were created and reviewed. CONTRAST: 150 mL of omnipaque 350 administered intravenously. COMPARISON: CT - ABD PELVIS W/O PO OR IV CONT 2017-05-27 00:01 FINDINGS: The cardiac silhouette is slightly prominent. The liver, spleen, pancreas, kidneys, gallbladder are normal. No aortic aneurysm or dissection. The bowel appears normal. A normal appendix is identified coronal images 62 through 65. Again seen is a rounded 2.7 cm complex cystic structure in the left inguinal region. Postcontrast images demonstrate no significant enhancement, thus vascular and neoplastic etiologies are felt unlikely. No surrounding enhancement to suggest abscess or inflammatory process. Congenital or acquired cyst would be likely. If this is the region of the patient's symptoms, followup may be helpful to assess for stability. The uterus appears normal. Scattered phleboliths are noted. IMPRESSION: Complex cystic structure in the left inguinal region as discussed above.
--- NOTE | 2017-05-27 04:47 | US ---
EXAM: US Pelvis, Transvaginal EXAM DATE/TIME: 05/27/2017 2:31 AM CLINICAL HISTORY: 52 years old, female; Pain; Pelvic pain TECHNIQUE: Real-time transvaginal pelvic ultrasound (complete) with image documentation. Transvaginal imaging was used for better evaluation of the endometrium and adnexa. COMPARISON: CT - ABD PELVIS IV CONTRAST ONLY 2017-05-27 02:48 FINDINGS: The uterus measures approximately 10 x 5 x 5 cm. The endometrium measures 12 mm. Multiple nabothian cysts are noted within the cervix. There is a possible 1.2 cm intramural right uterine fibroid. Nonvisualization of the ovaries. No significant free fluid. IMPRESSION: No acute findings.
--- NOTE | 2017-05-27 08:18 | RAD ---
HISTORY: abd pain COMPARISON: 03/01/2017 FINDINGS: LUNGS: Current lung volumes more shallow Interval increased opacification over each inferolateral hemithorax. In part summation of soft tissues knee. Concomitant pulmonary interstitial edema suspect. PLEURA: Possible small left pleural effusion. No pneumothorax. CARDIOVASCULAR: Cardiomegaly OSSEOUS STRUCTURES: Thoracic spondylosis VISUALIZED UPPER ABDOMEN: Normal. OTHER FINDINGS: None. IMPRESSION: Techniques markedly different between the 2 exams. Cardiomegaly and pulmonary interstitial edema suspect
== END 2017-05-27 04:58 | disposition home or self-care (01) ==
LOC: ED 22:11
DX: M54.9 Dorsalgia, unspecified (principal); R19.04 Left lower quadrant abdominal swelling, mass and lump
CPT/HCPCS: 71045; 74176; 74177; 76830; 80053; 81003; 83690; 84703; 85025; 85610; 85730; 96374; 96375; 99284; J1170; J1885; J2270; Q9967

== ENCOUNTER 2018-01-31 15:01 | Emergency (ER) | payer OTHER ==
[2018-01-31 15:04] VITALS: BMI 48.7
[2018-01-31 15:07] VITALS: RESP 18; TEMP 98.3; O2SAT 96
--- NOTE | 2018-01-31 15:43 | ED PDOC ---
Arrival/HPI - General Chief Complaint: Abdominal Pain Historian: Patient - History of Present Illness Narrative History of Present Illness (Text): 01/31/18 15:37 53yo female with pmhx of Asthma who present with complaint of LUQ abdominal pain with associated nausea and urinary frequency since last night. She denies vomiting, diarrhea, constipation, fever,chills, melena, hematemesis, dysuria, hematuria, back pain, chest pain, SOB, sick contact, travel. Past Medical History - Provider Review Nursing Documentation Reviewed: Yes - Infectious Disease Hx of Infectious Diseases: None - Reproductive Menopause: Yes - Cardiac Hx Cardiac Disorders: No - Pulmonary Hx Respiratory Disorders: Yes Hx Asthma: Yes (mild) - Neurological Hx Neurological Disorder: No - HEENT Hx HEENT Disorder: No - Renal Hx Renal Disorder: No - Endocrine/Metabolic Hx Endocrine Disorders: No - Hematological/Oncological Hx Blood Disorders: No - Integumentary Hx Dermatological Disorder: No - Musculoskeletal/Rheumatological Hx Musculoskeletal Disorders: No - Gastrointestinal Hx Gastrointestinal Disorders: No - Genitourinary/Gynecological Hx Genitourinary Disorders: No - Psychiatric Hx Psychophysiologic Disorder: No Hx Substance Use: No - Anesthesia Hx Anesthesia: No Hx Anesthesia Reactions: No Hx Malignant Hyperthermia: No Family/Social History - Physician Review Nursing Documentation Reviewed: Yes Family/Social History: Unknown Family HX Smoking Status: Never Smoked Hx Alcohol Use: No Hx Substance Use: No Allergies/Home Meds Allergies/Adverse Reactions: Allergies No Known Allergies Allergy (Verified 01/31/18 15:04) Review of Systems - Physician Review All systems were reviewed & negative as marked: Yes - Review of Systems Constitutional: Normal Eyes: Normal ENT: Normal Respiratory: Normal Cardiovascular: Normal Gastrointestinal: Abdominal Pain, Nausea. absent: Constipation, Diarrhea, Vomiting, Hematochezia, Hematemesis Genitourinary Female: Frequency. absent: Dysuria, Hematuria, Vaginal Bleeding Musculoskeletal: Normal Skin: Normal Neurological: Normal Endocrine: Normal Hemo/Lymphatic: Normal Psychiatric: Normal Physical Exam Vital Signs Reviewed: Yes Vital Signs Temp Pulse Resp BP Pulse Ox 01/31/18 15:05 98.3 F 85 18 141/83 96 Temperature: Afebrile Blood Pressure: Normal Pulse: Regular Respiratory Rate: Normal Appearance: Positive for: Well-Appearing, Non-Toxic, Comfortable, Other (Morbidly obese) Pain Distress: None Mental Status: Positive for: Alert and Oriented X 3 - Systems Exam Head: Present: Atraumatic, Normocephalic Pupils: Present: PERRL Extroacular Muscles: Present: EOMI Conjunctiva: Present: Normal Mouth: Present: Moist Mucous Membranes Neck: Present: Normal Range of Motion Respiratory/Chest: Present: Clear to Auscultation, Good Air Exchange. No: Respiratory Distress, Accessory Muscle Use Cardiovascular: Present: Regular Rate and Rhythm, Normal S1, S2. No: Murmurs Abdomen: Present: Tenderness (LUQ tenderness), Normal Bowel Sounds, Guarding (Voluntary), Other (Soft). No: Distention, Peritoneal Signs, Rebound, McBurney's Point Tender, Rovsing's Sign Present Back: Present: Normal Inspection Upper Extremity: Present: Normal Inspection. No: Cyanosis, Edema Lower Extremity: Present: Normal Inspection. No: Edema Neurological: Present: GCS=15, CN II-XII Intact, Speech Normal Skin: Present: Warm, Dry, Normal Color. No: Rashes Psychiatric: Present: Alert, Oriented x 3, Normal Insight, Normal Concentration Medical Decision Making ED Course and Treatment: 01/31/18 18:30 53yo female who present with complaint of LUQ abdominal pain with associated nausea and urinary frequency. Labs Abd/Pelvic CT 1L NS, pepcid, Zofran EKG EKG NSR @ 86bpm. No ST changes Labs was unremarkable Abdominal/Pelvic CT IMPRESSION: No acute findings related to/ accounting for the clinical presentation. Additional benign and/or incidental findings described above. No significant interval change compared to the prior examination(s). PT's pain improved on re evaluation. Result was DW the pt. She noted that she have a scheduled colonoscopy on 02/08/18 this month. She was advised to f/u with her GI. Caralfate rx given. Advised TRT ED for any new or worsening symptoms. She verbalizes understanding of given instructions. - RAD Interpretation Radiology Orders: 01/31/18 15:31 ABD & PELVIS IV CONTRAST ONLY [CT] Stat - Medication Orders Current Medication Orders: Discontinued Medications Famotidine (Pepcid) 20 mg IVP STAT STA Stop: 01/31/18 15:30 Ondansetron HCl (Zofran Inj) 4 mg IVP STAT STA Stop: 01/31/18 15:30 Disposition/Present on Arrival - Present on Arrival Any Indicators Present on Arrival: No History of DVT/PE: No History of Uncontrolled Diabetes: No Urinary Catheter: No History of Decub. Ulcer: No History Surgical Site Infection Following: None - Disposition Have Diagnosis and Disposition been Completed?: Yes Diagnosis: Abdominal pain Disposition: HOME/ ROUTINE Disposition Time: 18:00 Patient Plan: Discharge Patient Problems: Current Active Problems Problem Status Onset Abdominal pain Acute Condition: STABLE Discharge Instructions (ExitCare): Acute Abdomen (Belly Pain) Additional Instructions: Follow up with your Doctor/Medical Lab Director Return to ED for any new or worsening symptoms Prescriptions: Sucralfate [Carafate] 1 gm PO BID #14 tablet Referrals: Verito Reich MD [Primary Care Provider] - Follow up with primary Cesar Hernández MD [Medical Doctor] - Follow up with primary Forms: [employer] (Setswana)
[2018-01-31 16:42] LABS: ALT/SGPT 20 U/L (7-56); AMYLASE 86 U/L (35-125); AST/SGOT 27 U/L (14-36); BLOOD UREA NITROGEN 10 mg/dL (7-21); GFR NON-AFRICAN AMERICAN > 60; LIPASE 78 U/L (23-300)
[2018-01-31 16:46] LABS: EOS # 0.1 (0.0-0.7); EOS % 1.1 % (1.5-5.0); GRAN # 5.15 (1.4-6.5); GRAN % 62.1 % (50.0-68.0); HEMOGLOBIN 11.1 g/dL (12.0-16.0); LYMPH # 2.5 (1.2-3.4); MEAN CELL VOLUME 85.4 fl (80.0-105.0); MEAN CORPUSCULAR HEMOGLOBIN 27.5 pg (25.0-35.0); MEAN CORPUSCULAR HGB CONC 32.2 g/dl (31.0-37.0); MEAN PLATELET VOLUME 8.7 fl (7.0-11.0); MONO # 0.6 (0.1-0.6); MONO % 6.8 % (1.0-6.0); RBC 4.04 10^6/uL (3.5-6.1); WHITE BLOOD COUNT 8.3 10^3/uL (4.5-11.0)
[2018-01-31 16:49] LABS: URINE BILIRUBIN NEGATIVE (NEGATIVE); URINE BLOOD TRACE-INTACT (NEGATIVE); URINE GLUCOSE (UA) NEGATIVE (NEGATIVE); URINE LEUKOCYTE ESTERASE NEGATIVE Leu/uL (NEGATIVE); URINE PROTEIN NEGATIVE mg/dL (<30 mg/dL); URINE UROBILINOGEN 0.2 E.U./dL (<1 E.U./dL)
[2018-01-31 16:51] LABS: INR 1.03; PARTIAL THROMBOPLASTIN TIME 35.1 Seconds (25.1-36.5); PROTHROMBIN TIME 11.7 SECONDS (9.4-12.5)
[2018-01-31 16:53] LABS: TROPONIN I < 0.01 ng/mL
[2018-01-31 16:55] LABS: URINE APPEARANCE CLEAR (CLEAR); URINE COLOR LIGHT YELLOW (YELLOW)
[2018-01-31 17:18] LABS: URINE BACTERIA FEW (NEG); URINE EPITHELIAL CELLS 0 - 2 /hpf (0-5); URINE RBC 0 - 2 /hpf (0-2); URINE WBC NEGATIVE /hpf (0-6)
--- NOTE | 2018-01-31 17:34 | CT ---
Date of service: 01/31/2018 PROCEDURE: CT Abdomen and Pelvis with contrast HISTORY: LUQ pain COMPARISON: 05/27/2017. CT abdomen and pelvis TECHNIQUE: Intravenous contrast dose: 146 cc Omnipaque 350. Radiation dose: Total exam DLP = 1204.69 mGy-cm. This CT exam was performed using one or more of the following dose reduction techniques: Automated exposure control, adjustment of the mA and/or kV according to patient size, and/or use of iterative reconstruction technique. FINDINGS: LOWER THORAX: Unremarkable. LIVER: Unremarkable. No gross lesion or ductal dilatation. GALLBLADDER AND BILE DUCTS: Unremarkable. PANCREAS: Unremarkable. No gross lesion or ductal dilatation. SPLEEN: Unremarkable. ADRENALS: Unremarkable. No mass. KIDNEYS AND URETERS: Unremarkable. No hydronephrosis. No solid mass. VASCULATURE: Unremarkable. No aortic aneurysm. No atherosclerotic calcification or mural plaque present. BOWEL: Unremarkable. No obstruction. No gross mural thickening. APPENDIX: Normal appendix. PERITONEUM: Unremarkable. No free fluid. No free air. LYMPH NODES: Unremarkable. No enlarged lymph nodes. BLADDER: Unremarkable. REPRODUCTIVE: Unremarkable. BONES: No acute fracture. OTHER FINDINGS: Stable soft tissue mass anterior to the pubis on the left measures 2.8 x 3.6 cm. IMPRESSION: No acute findings related to/ accounting for the clinical presentation. Additional benign and/or incidental findings described above. No significant interval change compared to the prior examination(s).
[2018-01-31 18:38] VITALS: BP 135/71; PULSE 75
--- NOTE | 2018-01-31 18:52 | CARD ---
APPROVED REPORT Date of service: 01/31/2018 EKG Measurement Heart [id number] <Conclusion> Normal sinus rhythm Normal ECG
== END 2018-01-31 19:04 | disposition home or self-care (01) ==
LOC: ED 15:01
DX: R10.9 Unspecified abdominal pain (principal)
CPT/HCPCS: 74177; 80053; 81001; 82150; 82550; 83605; 83615; 83690; 84484; 85025; 85610; 85730; 87040; 93005; 96374; 96375; 99284; J2405; Q9967

== ENCOUNTER 2018-03-21 09:15 | Outpatient (CLI) | payer OTHER | END 2018-03-21 09:16 | disposition home or self-care (01) | LOC: RAD 09:15 ==

== ENCOUNTER → 2018-05-06 | Outpatient (CLI) | payer SELFPAY | LOC: LAB 13:36 ==

== ENCOUNTER 2018-05-12 15:34 | Outpatient (CLI) | payer OTHER | END 2018-05-12 15:35 | disposition home or self-care (01) | LOC: LAB 15:34 | DX: Z00.00 Encounter for general adult medical examination without abnormal findings (principal) ==

== ENCOUNTER 2018-06-30 10:37 | Inpatient (IN) | payer OTHER ==
[2018-06-30 10:44] VITALS: BMI 48.1
[2018-06-30] MEDS ORDERED: Albuterol-Ipratrop 3 mg / 0.5 (3 ml) UD IH STA ×2 (10:50→11:47)
--- NOTE | 2018-06-30 10:55 | ED PDOC ---
Arrival/HPI - General Chief Complaint: Shortness Of Breath Time Seen by Provider: 06/30/18 10:39 Historian: Patient - History of Present Illness Narrative History of Present Illness (Text): 06/30/18 10:55 53 y/o female with PMH of asthma presents to the ED c/o cough and SOB x 3 days. Associated burning epigastric pain without radiation. She states the SOB feels like her typical asthma exacerbations. She has been using her nebulizer treatments and taken a few left over prednisone tabs without relief. Cough is productive of yellow sputum. Denies fevers, chills, chest pain, palpitations, diaphoresis, hemoptysis, leg swelling, nausea, vomiting, granado pain, or any other associated symptoms. Past Medical History - Provider Review Nursing Documentation Reviewed: Yes - Infectious Disease Hx of Infectious Diseases: None - Cardiac Hx Cardiac Disorders: No - Pulmonary Hx Respiratory Disorders: Yes Hx Asthma: Yes (mild) - Neurological Hx Neurological Disorder: No - HEENT Hx HEENT Disorder: No - Renal Hx Renal Disorder: No - Endocrine/Metabolic Hx Endocrine Disorders: No - Hematological/Oncological Hx Blood Disorders: No - Integumentary Hx Dermatological Disorder: No - Musculoskeletal/Rheumatological Hx Musculoskeletal Disorders: No - Gastrointestinal Hx Gastrointestinal Disorders: No - Genitourinary/Gynecological Hx Genitourinary Disorders: No - Psychiatric Hx Psychophysiologic Disorder: No Hx Substance Use: No - Anesthesia Hx Anesthesia: No Hx Anesthesia Reactions: No Hx Malignant Hyperthermia: No Family/Social History - Physician Review Nursing Documentation Reviewed: Yes Family/Social History: No Known Family HX Smoking Status: Never Smoked Hx Alcohol Use: No Hx Substance Use: No Allergies/Home Meds Allergies/Adverse Reactions: Allergies No Known Allergies Allergy (Verified 01/31/18 15:04) Home Medications: Home Meds Medication Instructions Recorded Confirmed Albuterol HFA [Ventolin HFA 90 1 puff IH PRN PRN 06/30/18 06/30/18 mcg/actuation (8 g)] Review of Systems - Review of Systems Constitutional: Normal. absent: Fevers Eyes: Normal. absent: Vision Changes ENT: Normal. absent: Sore Throat, Sinus Congestion Respiratory: SOB, Cough, Sputum, Wheezing Cardiovascular: Normal. absent: Chest Pain, Palpitations, Syncope Gastrointestinal: Abdominal Pain. absent: Stool Changes, Nausea, Vomiting, Appetite Changes Genitourinary Female: Normal. absent: Dysuria, Frequency Musculoskeletal: Normal. absent: Back Pain, Neck Pain Skin: Normal. absent: Rash Neurological: Normal. absent: Headache, Dizziness, Focal Weakness Physical Exam Vital Signs Reviewed: Yes Temperature: Afebrile Blood Pressure: Hypertensive Pulse: Regular Respiratory Rate: Normal Appearance: Positive for: Well-Appearing, Non-Toxic, Comfortable, Other (Obese) Pain Distress: None Mental Status: Positive for: Alert and Oriented X 3 - Systems Exam Head: Present: Atraumatic, Normocephalic Conjunctiva: Present: Normal Ears: Present: Normal, NORMAL TM, Normal Canal Mouth: Present: Moist Mucous Membranes Pharnyx: Present: Normal. No: ERYTHEMA, EXUDATE, TONSILS ENLARGED, Muffled/Hoarse Voice Neck: Present: Normal Range of Motion. No: Meningeal Signs Respiratory/Chest: Present: Wheezes (intermittent expiratory, bilaterally ), Decreased Breath Sounds (bilaterally). No: Respiratory Distress, Accessory Muscle Use Cardiovascular: Present: Regular Rate and Rhythm, Normal S1, S2 Abdomen: Present: Tenderness (mild epigastric), Normal Bowel Sounds, Other (obese). No: Distention, Peritoneal Signs Back: Present: Normal Inspection. No: CVA Tenderness Upper Extremity: Present: Normal Inspection, Normal ROM, NORMAL PULSES, Neurovascularly Intact, Capillary Refill < 2s. No: Cyanosis, Edema, Temperature Abnormalties Lower Extremity: Present: Normal Inspection, NORMAL PULSES, Normal ROM, Neurovascularly Intact, Capillary Refill < 2 s. No: Edema, Temperature Abnormalties Neurological: Present: GCS=15, CN II-XII Intact, Speech Normal, Motor Func Grossly Intact, Normal Sensory Function, Gait Normal Skin: Present: Warm, Dry, Normal Color. No: Rashes Psychiatric: Present: Alert, Oriented x 3, Normal Insight, Normal Concentration, Normal Affect, Normal Mood Medical Decision Making ED Course and Treatment: 06/30/18 10:52 Initial Plan: * Labs * VBG * UA * EKG * CXR * Solumedrol * Duoneb PERC Rule for Pulmonary Embolism RESULT SUMMARY: 1 criteria If any criteria are positive, the PERC rule cannot be used to rule out PE in this patient. INPUTS: Age >50 > 1 = Yes HR >100 > 0 = No SaO2 on room air <95% > 0 = No Unilateral leg swelling > 0 = No Hemoptysis > 0 = No Recent surgery or trauma > 0 = No Prior PE or DVT > 0 = No Hormone use > 0 = No EKG shows NSR at 90; Normal intervals and axis; No STEMI or other signs of acute ischemia 11:45 Repeat BP 133/83, normal CBC reviewed, shows left shift without leukocytosis CMP and Coag hemolyzed, nurse Jackie to redraw 13:02 Notified of elevated lactate. Patient is afebrile with no white count. Tachycardic with RR< 20. Fluids ordered. CMP shows mild hyperglycemia, otherwise unremarkable Dimer elevated, will get CTA. 06/30/18 13:22 Secondary to left shift on CBC, mild tachycardia, and respiratory complaints, will order one dose rocephin, azithro. 14:10 CT shows possible Left lower lobe pneumonia, no central PE. Limited study. 14:15 Spoke with hospitalist team Dr. Jewell who accepted patient for inpatient admission to telemetry with diagnoses of pneumonia, hyperglycemia, and dyspnea. - Lab Interpretations Lab Results: 06/30/18 11:16 06/30/18 11:55 Lab Results 06/30/18 13:43: Urine Color Yellow, Urine Appearance Clear, Urine pH 7.5, Ur Specific [place] 1.015, Urine Protein Negative, Urine Glucose (UA) Negative, Urine Ketones Negative, Urine Blood Trace-intact H, Urine Nitrate Negative, Urine Bilirubin Negative, Urine Urobilinogen 0.2, Ur Leukocyte Esterase Trace H, Urine RBC Pending, Urine WBC Pending 06/30/18 12:32: pO2 34, VBG pH 7.35, VBG pCO2 51.0, VBG HCO3 28.2 H, VBG Total CO2 29.8 H, VBG O2 Sat (Calc) 66.2 H, VBG Base Excess 1.7, VBG Potassium 5.6 H, Glucose 193 H, Lactate 3.1 H, FiO2 40.0, Crit Value Called To kellee Mejia, Crit Value Called By Rt, Blood Gas Notified Time 1243, Sodium 139.0, Chloride 105.0, Venous Blood Potassium 5.6 H 06/30/18 11:55: Lipase 58 06/30/18 11:55: PT 12.3, INR 1.09, APTT 26.5 L, D-Dimer, Quantitative 324 H 06/30/18 11:55: Sodium 137, Potassium 4.2, Chloride 103, Carbon Dioxide 27, Anion Gap 12, BUN 8, Creatinine 0.8, Est GFR ( Amer) > 60, Est GFR (Non- Af Amer) > 60, Random Glucose 224 H, Calcium 8.9, Magnesium 1.8, Total Bilirubin 0.4, AST 27, ALT < 6 L, Alkaline Phosphatase 71, Troponin I < 0.01, NT-Pro-B Natriuret Pep 18.6, Total Protein 8.4 H, Albumin 4.2, Globulin 4.2, Albumin/Globulin Ratio 1.0 L 06/30/18 11:16: PT Cancelled, INR Cancelled, APTT Cancelled, D-Dimer, Quantitative Cancelled 06/30/18 11:16: WBC 9.1, RBC 4.20, Hgb 11.5 L, Hct 35.5 L, MCV 84.5, MCH 27.4, MCHC 32.4, RDW 14.4, Plt Count 295, MPV 9.1, Neut % (Auto) 88.6 H, Lymph % (Auto) 10.5 L, Hill % (Auto) 0.8 L, Eos % (Auto) 0.0 L, Baso % (Auto) 0.1, Lymph # (Auto) 1.0 L, Hill # (Auto) 0.1, Eos # (Auto) 0.0, Baso # (Auto) 0.01, Absolute Neuts (auto) 8.07 H I have reviewed the lab results: Yes - RAD Interpretation Narrative RAD Interpretations (Text): 06/30/18 13:11 CXR: FINDINGS: LUNGS: No active pulmonary disease. PLEURA: No significant pleural effusion identified, no pneumothorax apparent. CARDIOVASCULAR: No aortic atherosclerotic calcification present. Normal cardiac size. No pulmonary vascular congestion. OSSEOUS STRUCTURES: No significant abnormalities. VISUALIZED UPPER ABDOMEN: Normal. OTHER FINDINGS: None. IMPRESSION: No active disease. CTA Chest: FINDINGS: PULMONARY ARTERIES: No large/central pulmonary emboli. Nondiagnostic study at and beyond segmental branch level. AORTA: No acute findings. No thoracic aortic aneurysm. No atherosclerotic calcification or mural plaque present. LUNGS: Subsegmental infiltrate/atelectasis basilar segment left lower. No pulmonary nodules or masses identified. PLEURAL SPACES: Unremarkable. No effusion or pneumothorax. HEART: Unremarkable. No cardiomegaly. No significant pericardial effusion. LYMPH NODES: No lymphadenopathy. BONES, CHEST WALL: Unremarkable. No fracture or destructive lesion OTHER FINDINGS: Unremarkable. IMPRESSION: No large/central pulmonary emboli. Limitations of the current examination: Qualitative and quantitative assessment of opacification of pulmonary arterial system precludes evaluation/assessment at and beyond segmental branch levels. Additional benign and/or incidental findings described above. Radiology Orders: 06/30/18 10:50 CHEST PORTABLE [RAD] Stat Bottle Filler: Radiologist - EKG Interpretation EKG Interpretation (Text): 06/30/18 13:12 Rate 90; NSR; Normal Intervals; No STEMI or other signs of acute ischemia Interpreted by ED Physician: Yes Type: 12 lead EKG - Medication Orders Current Medication Orders: Albuterol/Ipratropium (Duoneb 3 Mg/0.5 Mg (3 Ml) Ud) 3 ml IH STAT STA Stop: 06/30/18 10:51 Methylprednisolone (Solu-Medrol) 125 mg IVP STAT STA Stop: 06/30/18 10:51 Disposition/Present on Arrival - Present on Arrival Any Indicators Present on Arrival: No History of DVT/PE: No History of Uncontrolled Diabetes: No Urinary Catheter: No History of Decub. Ulcer: No History Surgical Site Infection Following: None - Disposition Have Diagnosis and Disposition been Completed?: Yes Diagnosis: Pneumonia, Hyperglycemia, Dyspnea, Elevated lactic acid level, Asthma exacerbation Disposition: HOSPITALIZED Disposition Time: 14:00 Patient Plan: Admission Patient Problems: Current Active Problems Problem Status Onset Asthma exacerbation Acute Dyspnea Acute Elevated lactic acid level Acute Hyperglycemia Acute Pneumonia Acute Condition: GUARDED
[2018-06-30 11:25] LABS: BASO # 0.01 K/mm3 (0.0-2.0); BASO % 0.1 % (0.0-3.0); HEMOGLOBIN 11.5 g/dL (12.0-16.0); LYMPH % 10.5 % (22.0-35.0); MEAN CELL VOLUME 84.5 fl (80.0-105.0); MEAN CORPUSCULAR HEMOGLOBIN 27.4 pg (25.0-35.0); MEAN CORPUSCULAR HGB CONC 32.4 g/dl (31.0-37.0); MEAN PLATELET VOLUME 9.1 fl (7.0-11.0); MONO # 0.1 (0.1-0.6); MONO % 0.8 % (1.0-6.0); RBC 4.2 10^6/uL (3.5-6.1); RED CELL DISTRIBUTION WIDTH 14.4 % (11.5-14.5); WHITE BLOOD COUNT 9.1 10^3/uL (4.5-11.0)
[2018-06-30 12:19] LABS: ALBUMIN 4.2 g/dL (3.0-4.8); ALT/SGPT < 6 U/L (7-56); AST/SGOT 27 U/L (14-36); BLOOD UREA NITROGEN 8 mg/dL (7-21); CALCIUM 8.9 mg/dL (8.4-10.5); GFR NON-AFRICAN AMERICAN > 60
--- NOTE | 2018-06-30 12:21 | CARD ---
APPROVED REPORT Date of service: 06/30/2018 EKG Measurement Heart [id number] ID [id number] <Conclusion> Normal sinus rhythm Normal ECG
[2018-06-30 12:26] LABS: INR 1.09; PARTIAL THROMBOPLASTIN TIME 26.5 Seconds (26.9-38.3); PROTHROMBIN TIME 12.3 SECONDS (9.4-12.5)
[2018-06-30 12:33] LABS: B-TYPE NATRIURETIC PEPTIDE 18.6 pg/mL (0-450); TROPONIN I < 0.01 ng/mL
[2018-06-30 12:43] LABS: VENOUS BLOOD GAS BASE EXCESS 1.7 mmol/L (0.0-2.0); VENOUS BLOOD GAS PO2 34 mm/Hg (30-55); VENOUS BLOOD PH 7.35 (7.32-7.43)
[2018-06-30] MEDS ORDERED: Sodium Chloride 0.9% 1,000 ML IV STA (12:48)
--- NOTE | 2018-06-30 13:06 | RAD ---
Date of service: 06/30/2018 HISTORY: productive cough, SOB COMPARISON: 03/21/2018 TECHNIQUE: 1 view obtained. FINDINGS: LUNGS: No active pulmonary disease. PLEURA: No significant pleural effusion identified, no pneumothorax apparent. CARDIOVASCULAR: No aortic atherosclerotic calcification present. Normal cardiac size. No pulmonary vascular congestion. OSSEOUS STRUCTURES: No significant abnormalities. VISUALIZED UPPER ABDOMEN: Normal. OTHER FINDINGS: None. IMPRESSION: No active disease.
[2018-06-30] MEDS ORDERED: cefTRIAXone 1 gm 1 GM/100 ML BAG IVPB STA (13:08)
[2018-06-30] MEDS ORDERED: Azithromycin 250 MG in Sodium Chloride 0.9% 250 ML IVPB STA (13:19)
[2018-06-30] MEDS ORDERED: Iohexol 350 MG/100 ML VIAL ONE (13:28)
[2018-06-30 14:00] LABS: PH,URINE 7.5 (4.7-8.0); URINE BILIRUBIN NEGATIVE (NEGATIVE); URINE BLOOD TRACE-INTACT (NEGATIVE); URINE GLUCOSE (UA) NEGATIVE (NEGATIVE); URINE LEUKOCYTE ESTERASE TRACE Leu/uL (NEGATIVE); URINE PROTEIN NEGATIVE mg/dL (<30 mg/dL); URINE UROBILINOGEN 0.2 E.U./dL (<1 E.U./dL)
[2018-06-30 14:05] LABS: URINE APPEARANCE CLEAR (CLEAR); URINE COLOR YELLOW (YELLOW)
--- NOTE | 2018-06-30 14:16 | CT ---
Date of service: 06/30/2018 PROCEDURE: CT Chest with contrast (Pulmonary Angiogram) HISTORY: SOB, elevated Dimer COMPARISON: To TECHNIQUE: Axial computed tomography images were obtained of the chest in the pulmonary arterial phase of enhancement. Coronal and sagittal reformatted images were created and reviewed. Intravenous contrast dose: 100 cc Omnipaque 350. Mean Hounsfield value in the main pulmonary artery: 186.99 Radiation dose: Total exam DLP = 438.76 mGy-cm. This CT exam was performed using one or more of the following dose reduction techniques: Automated exposure control, adjustment of the mA and/or kV according to patient size, and/or use of iterative reconstruction technique. FINDINGS: PULMONARY ARTERIES: No large/central pulmonary emboli. Nondiagnostic study at and beyond segmental branch level. AORTA: No acute findings. No thoracic aortic aneurysm. No atherosclerotic calcification or mural plaque present. LUNGS: Subsegmental infiltrate/atelectasis basilar segment left lower. No pulmonary nodules or masses identified. PLEURAL SPACES: Unremarkable. No effusion or pneumothorax. HEART: Unremarkable. No cardiomegaly. No significant pericardial effusion. LYMPH NODES: No lymphadenopathy. BONES, CHEST WALL: Unremarkable. No fracture or destructive lesion OTHER FINDINGS: Unremarkable. IMPRESSION: No large/central pulmonary emboli. Limitations of the current examination: Qualitative and quantitative assessment of opacification of pulmonary arterial system precludes evaluation/assessment at and beyond segmental branch levels. Additional benign and/or incidental findings described above.
[2018-06-30 14:18] LABS: URINE BACTERIA MANY /hpf
[2018-06-30 14:57] LABS: ARTERIAL BLOOD GAS O2 SAT 99.3 % (95-98); ARTERIAL BLOOD GAS PCO2 38 mm/Hg (35-45); ARTERIAL BLOOD GAS PH 7.39 (7.35-7.45); ARTERIAL BLOOD GAS TCO2 24.2 mmol.L (22-28)
[2018-06-30] MEDS ORDERED: Albuterol-Ipratrop 3 mg / 0.5 (3 ml) UD IH PRN (15:37)
--- NOTE | 2018-06-30 16:01 | CP.PCM.HP ---
<Javed Varma - Last Filed: 06/30/18 16:06> History of Present Illness - History of Present Illness History of Present Illness: History and Physical for Hospitalist Service - Gabriel Varma PGY2 CC: Shortness of breath HPI: 53 year old female with past medical history of asthma who presented to [facility] ED with 1 week productive clearish sputum and few days of progressive shortness of breath. Patient reports using her inhaler more frequently over the past week. She indicates treating her self with at home nebulizer treatments and recently starting a medrol dose pack over the past three days. She reports previous asthma exacerbation and denies prior intubations. She denies sick contacts, fevers, changes in medications. She states she was in [facility] over the past week and reports exposure to multiple construction sites and pedestrians who were smoking. She does work as a [employer]. She was given duonebs and steroids in the ED with improvement of her symptoms. Patient reports chest tightness secondary to increased respiratory effort. She denies sharp shooting, radiating chest pain. She denies abdominal pain, nausea, vomiting, fever, chills, diarrhea, constipation, neurological deficits, urinary complaints, hemoptysis, leg swelling. PMH: Asthma PSH: Denies SOCHX: Denies tobacco, etoh, ID. Lives in [place] with her ALL: NKDA MEDS: ALbuterol Inhaler HFA 2 puffs prn, Medrol Dose pack day 3, Nebulizer treatment PMD: Dr. Reich at [facility] Present on Admission - Present on Admission Any Indicators Present on Admission: No Review of Systems - Review of Systems All systems: reviewed and no additional remarkable complaints except (as mentioned in HPI) Past Patient History - Infectious Disease Hx of Infectious Diseases: None - Past Social History Smoking Status: Never Smoked - CARDIAC Hx Cardiac Disorders: No - PULMONARY Hx Respiratory Disorders: Yes Hx Asthma: Yes (mild) - NEUROLOGICAL Hx Neurological Disorder: No - HEENT Hx HEENT Problems: No - RENAL Hx Chronic Kidney Disease: No - ENDOCRINE/METABOLIC Hx Endocrine Disorders: No - HEMATOLOGICAL/ONCOLOGICAL Hx Blood Disorders: No - INTEGUMENTARY Hx Dermatological Problems: No - MUSCULOSKELETAL/RHEUMATOLOGICAL Hx Musculoskeletal Disorders: No - GASTROINTESTINAL Hx Gastrointestinal Disorders: No - GENITOURINARY/GYNECOLOGICAL Hx Genitourinary Disorders: No - PSYCHIATRIC Hx Psychophysiologic Disorder: No Hx Substance Use: No - SURGICAL HISTORY Hx Surgeries: No - ANESTHESIA Hx Anesthesia: No Hx Anesthesia Reactions: No Hx Malignant Hyperthermia: No Meds Allergies/Adverse Reactions: Allergies Allergy/AdvReac Type Severity Reaction Status Date / Time No Known Allergies Allergy Verified 01/31/18 15:04 Physical Exam - Constitutional Appears: Non-toxic, No Acute Distress - Head Exam Head Exam: ATRAUMATIC, NORMOCEPHALIC - Eye Exam Eye Exam: PERRL Additional comments: Left eye strabismus - ENT Exam ENT Exam: Mucous Membranes Moist - Neck Exam Neck exam: Positive for: Full Rom. Negative for: Lymphadenopathy, Thyromegaly - Respiratory Exam Respiratory Exam: Clear to Auscultation Bilateral, Wheezes (minimal ), NORMAL BREATHING PATTERN. absent: Accessory Muscle Use, Chest Wall Tenderness, Rales, Rhonchi, Stridor - Cardiovascular Exam Cardiovascular Exam: Tachycardia, REGULAR RHYTHM, +S1, +S2. absent: Systolic Murmur - GI/Abdominal Exam GI & Abdominal Exam: Normal Bowel Sounds, Soft. absent: Distended, Firm, Guarding, Rigid, Tenderness - Extremities Exam Extremities exam: Negative for: calf tenderness, pedal edema, tenderness - Neurological Exam Neurological exam: Alert, CN II-XII Intact, Normal Gait, Oriented x3, Reflexes Normal Additional comments: motor and sensory grossly intact - Psychiatric Exam Psychiatric exam: Normal Affect, Normal Mood - Skin Skin Exam: Dry, Intact Results - Vital Signs Recent Vital Signs: Last Vital Signs Temp 98.6 F 06/30/18 10:53 Pulse 94 H 06/30/18 11:36 Resp 18 06/30/18 11:36 BP 133/83 06/30/18 11:36 Pulse Ox 94 L 06/30/18 11:36 - Labs Result Diagrams: 06/30/18 11:16 06/30/18 11:55 Labs: Laboratory Results - last 24 hr 06/30/18 06/30/18 06/30/18 11:16 11:16 11:55 WBC 9.1 RBC 4.20 Hgb 11.5 L Hct 35.5 L MCV 84.5 MCH 27.4 MCHC 32.4 RDW 14.4 Plt Count 295 MPV 9.1 Neut % (Auto) 88.6 H Lymph % (Auto) 10.5 L Carter % (Auto) 0.8 L Eos % (Auto) 0.0 L Baso % (Auto) 0.1 Lymph # (Auto) 1.0 L Carter # (Auto) 0.1 Eos # (Auto) 0.0 Baso # (Auto) 0.01 Absolute Neuts (auto) 8.07 H PT Cancelled INR Cancelled APTT Cancelled D-Dimer, Quantitative Cancelled pCO2 pO2 HCO3 ABG pH ABG Total CO2 ABG O2 Saturation ABG Base Excess ABG Potassium VBG pH VBG pCO2 VBG HCO3 VBG Total CO2 VBG O2 Sat (Calc) VBG Base Excess VBG Potassium Glucose Lactate FiO2 Crit Value Called To Crit Value Called By Blood Gas Notified Time Sodium 137 Potassium 4.2 Chloride 103 Carbon Dioxide 27 Anion Gap 12 BUN 8 Creatinine 0.8 Est GFR ( Amer) > 60 Est GFR (Non-Af Amer) > 60 Random Glucose 224 H Calcium 8.9 Magnesium 1.8 Total Bilirubin 0.4 AST 27 ALT < 6 L Alkaline Phosphatase 71 Troponin I < 0.01 NT-Pro-B Natriuret Pep 18.6 Total Protein 8.4 H Albumin 4.2 Globulin 4.2 Albumin/Globulin Ratio 1.0 L Lipase Arterial Blood Potassium Venous Blood Potassium Urine Color Urine Appearance Urine pH Ur Specific Troy Urine Protein Urine Glucose (UA) Urine Ketones Urine Blood Urine Nitrate Urine Bilirubin Urine Urobilinogen Ur Leukocyte Esterase Urine RBC Urine WBC Ur Epithelial Cells Urine Bacteria 06/30/18 06/30/18 06/30/18 11:55 11:55 12:32 WBC RBC Hgb Hct MCV MCH MCHC RDW Plt Count MPV Neut % (Auto) Lymph % (Auto) Carter % (Auto) Eos % (Auto) Baso % (Auto) Lymph # (Auto) Carter # (Auto) Eos # (Auto) Baso # (Auto) Absolute Neuts (auto) PT 12.3 INR 1.09 APTT 26.5 L D-Dimer, Quantitative 324 H pCO2 pO2 34 HCO3 ABG pH ABG Total CO2 ABG O2 Saturation ABG Base Excess ABG Potassium VBG pH 7.35 VBG pCO2 51.0 VBG HCO3 28.2 H VBG Total CO2 29.8 H VBG O2 Sat (Calc) 66.2 H VBG Base Excess 1.7 VBG Potassium 5.6 H Glucose 193 H Lactate 3.1 H FiO2 40.0 Crit Value Called To kellee Mejia Crit Value Called By Rt Blood Gas Notified Time 1243 Sodium 139.0 Potassium Chloride 105.0 Carbon Dioxide Anion Gap BUN Creatinine Est GFR ( Amer) Est GFR (Non-Af Amer) Random Glucose Calcium Magnesium Total Bilirubin AST ALT Alkaline Phosphatase Troponin I NT-Pro-B Natriuret Pep Total Protein Albumin Globulin Albumin/Globulin Ratio Lipase 58 Arterial Blood Potassium Venous Blood Potassium 5.6 H Urine Color Urine Appearance Urine pH Ur Specific Troy Urine Protein Urine Glucose (UA) Urine Ketones Urine Blood Urine Nitrate Urine Bilirubin Urine Urobilinogen Ur Leukocyte Esterase Urine RBC Urine WBC Ur Epithelial Cells Urine Bacteria 06/30/18 06/30/18 13:43 14:52 WBC RBC Hgb Hct MCV MCH MCHC RDW Plt Count MPV Neut % (Auto) Lymph % (Auto) Carter % (Auto) Eos % (Auto) Baso % (Auto) Lymph # (Auto) Carter # (Auto) Eos # (Auto) Baso # (Auto) Absolute Neuts (auto) PT INR APTT D-Dimer, Quantitative pCO2 38 pO2 120.0 H HCO3 23.0 ABG pH 7.39 ABG Total CO2 24.2 ABG O2 Saturation 99.3 H ABG Base Excess -1.7 ABG Potassium 3.8 VBG pH VBG pCO2 VBG HCO3 VBG Total CO2 VBG O2 Sat (Calc) VBG Base Excess VBG Potassium Glucose 172 H Lactate 2.5 H FiO2 28.0 Crit Value Called To gila Valerio Crit Value Called By Rt Blood Gas Notified Time 1457 Sodium 137.0 Potassium Chloride 106.0 Carbon Dioxide Anion Gap BUN Creatinine Est GFR ( Amer) Est GFR (Non-Af Amer) Random Glucose Calcium Magnesium Total Bilirubin AST ALT Alkaline Phosphatase Troponin I NT-Pro-B Natriuret Pep Total Protein Albumin Globulin Albumin/Globulin Ratio Lipase Arterial Blood Potassium 3.8 Venous Blood Potassium Urine Color Yellow Urine Appearance Clear Urine pH 7.5 Ur Specific Troy 1.015 Urine Protein Negative Urine Glucose (UA) Negative Urine Ketones Negative Urine Blood Trace-intact H Urine Nitrate Negative Urine Bilirubin Negative Urine Urobilinogen 0.2 Ur Leukocyte Esterase Trace H Urine RBC 1 - 3 H Urine WBC 2 - 5 Ur Epithelial Cells 6 - 8 H Urine Bacteria Many Assessment & Plan - Assessment and Plan (Free Text) Assessment: 53 year old female with past medical history of asthma who presented to [facility] ED with 1 week productive clearish sputum and few days of progressive shortness of breath. Patient to be admitted for asthma exacerbation. Plan: Asthma exacerbation - Etiology: Seasonal allergies vs. allergen exposure vs. URI vs. PE - CTA showing No large/central pulmonary emboli. Limitations of the current examination: Qualitative and quantitative assessment of opacification of pulmonary arterial system precludes evaluation/assessment at and beyond segmental branch levels - CXR showing no active disease - Absent white count - IV solumedrol 30mg BID, Azithromyocin, Rocephin - Duonebs Q2H prn, Q6H scheduled - Will order procal, sputum culture and follow up results Elevated D-Dimer in the setting of SOB - D-Dimer 300s, O2 sats >90% consistently - PERC of 1 - Concern for PE, CTA performed with no evidence of large/central pulmonary embo li Elevated lactic acid - Likely secondary to asthma exacerbation and increased respiratory effort leading to more anaerobic state - Repeat ABG shows reduction in lactic acid Elevated glucose - Patient with recent steroid usage - Concern for DM will order HgA1C DVT/GI PPX - Heparin 5000 SC Q8H - Pepcid 40mg HS Patient seen, case and plan discussed with attending Dr. Jewell <Beverly Jewell - Last Filed: 06/30/18 16:17> Results - Vital Signs Recent Vital Signs: Last Vital Signs Temp 98.6 F 06/30/18 10:53 Pulse 94 H 06/30/18 11:36 Resp 18 06/30/18 11:36 BP 133/83 06/30/18 11:36 Pulse Ox 94 L 06/30/18 11:36 - Labs Result Diagrams: 06/30/18 11:16 06/30/18 11:55 Labs: Laboratory Results - last 24 hr 06/30/18 06/30/18 06/30/18 11:16 11:16 11:55 WBC 9.1 RBC 4.20 Hgb 11.5 L Hct 35.5 L MCV 84.5 MCH 27.4 MCHC 32.4 RDW 14.4 Plt Count 295 MPV 9.1 Neut % (Auto) 88.6 H Lymph % (Auto) 10.5 L Carter % (Auto) 0.8 L Eos % (Auto) 0.0 L Baso % (Auto) 0.1 Lymph # (Auto) 1.0 L Carter # (Auto) 0.1 Eos # (Auto) 0.0 Baso # (Auto) 0.01 Absolute Neuts (auto) 8.07 H PT Cancelled INR Cancelled APTT Cancelled D-Dimer, Quantitative Cancelled pCO2 pO2 HCO3 ABG pH ABG Total CO2 ABG O2 Saturation ABG Base Excess ABG Potassium VBG pH VBG pCO2 VBG HCO3 VBG Total CO2 VBG O2 Sat (Calc) VBG Base Excess VBG Potassium Glucose Lactate FiO2 Crit Value Called To Crit Value Called By Blood Gas Notified Time Sodium 137 Potassium 4.2 Chloride 103 Carbon Dioxide 27 Anion Gap 12 BUN 8 Creatinine 0.8 Est GFR ( Amer) > 60 Est GFR (Non-Af Amer) > 60 Random Glucose 224 H Calcium 8.9 Magnesium 1.8 Total Bilirubin 0.4 AST 27 ALT < 6 L Alkaline Phosphatase 71 Troponin I < 0.01 NT-Pro-B Natriuret Pep 18.6 Total Protein 8.4 H Albumin 4.2 Globulin 4.2 Albumin/Globulin Ratio 1.0 L Lipase Arterial Blood Potassium Venous Blood Potassium Urine Color Urine Appearance Urine pH Ur Specific Troy Urine Protein Urine Glucose (UA) Urine Ketones Urine Blood Urine Nitrate Urine Bilirubin Urine Urobilinogen Ur Leukocyte Esterase Urine RBC Urine WBC Ur Epithelial Cells Urine Bacteria 06/30/18 06/30/18 06/30/18 11:55 11:55 12:32 WBC RBC Hgb Hct MCV MCH MCHC RDW Plt Count MPV Neut % (Auto) Lymph % (Auto) Carter % (Auto) Eos % (Auto) Baso % (Auto) Lymph # (Auto) Carter # (Auto) Eos # (Auto) Baso # (Auto) Absolute Neuts (auto) PT 12.3 INR 1.09 APTT 26.5 L D-Dimer, Quantitative 324 H pCO2 pO2 34 HCO3 ABG pH ABG Total CO2 ABG O2 Saturation ABG Base Excess ABG Potassium VBG pH 7.35 VBG pCO2 51.0 VBG HCO3 28.2 H VBG Total CO2 29.8 H VBG O2 Sat (Calc) 66.2 H VBG Base Excess 1.7 VBG Potassium 5.6 H Glucose 193 H Lactate 3.1 H FiO2 40.0 Crit Value Called To kellee Mejia Crit Value Called By Rt Blood Gas Notified Time 1243 Sodium 139.0 Potassium Chloride 105.0 Carbon Dioxide Anion Gap BUN Creatinine Est GFR ( Amer) Est GFR (Non-Af Amer) Random Glucose Calcium Magnesium Total Bilirubin AST ALT Alkaline Phosphatase Troponin I NT-Pro-B Natriuret Pep Total Protein Albumin Globulin Albumin/Globulin Ratio Lipase 58 Arterial Blood Potassium Venous Blood Potassium 5.6 H Urine Color Urine Appearance Urine pH Ur Specific Troy Urine Protein Urine Glucose (UA) Urine Ketones Urine Blood Urine Nitrate Urine Bilirubin Urine Urobilinogen Ur Leukocyte Esterase Urine RBC Urine WBC Ur Epithelial Cells Urine Bacteria 06/30/18 06/30/18 13:43 14:52 WBC RBC Hgb Hct MCV MCH MCHC RDW Plt Count MPV Neut % (Auto) Lymph % (Auto) Carter % (Auto) Eos % (Auto) Baso % (Auto) Lymph # (Auto) Carter # (Auto) Eos # (Auto) Baso # (Auto) Absolute Neuts (auto) PT INR APTT D-Dimer, Quantitative pCO2 38 pO2 120.0 H HCO3 23.0 ABG pH 7.39 ABG Total CO2 24.2 ABG O2 Saturation 99.3 H ABG Base Excess -1.7 ABG Potassium 3.8 VBG pH VBG pCO2 VBG HCO3 VBG Total CO2 VBG O2 Sat (Calc) VBG Base Excess VBG Potassium Glucose 172 H Lactate 2.5 H FiO2 28.0 Crit Value Called To gila Valerio Crit Value Called By Rt Blood Gas Notified Time 1457 Sodium 137.0 Potassium Chloride 106.0 Carbon Dioxide Anion Gap BUN Creatinine Est GFR ( Amer) Est GFR (Non-Af Amer) Random Glucose Calcium Magnesium Total Bilirubin AST ALT Alkaline Phosphatase Troponin I NT-Pro-B Natriuret Pep Total Protein Albumin Globulin Albumin/Globulin Ratio Lipase Arterial Blood Potassium 3.8 Venous Blood Potassium Urine Color Yellow Urine Appearance Clear Urine pH 7.5 Ur Specific Troy 1.015 Urine Protein Negative Urine Glucose (UA) Negative Urine Ketones Negative Urine Blood Trace-intact H Urine Nitrate Negative Urine Bilirubin Negative Urine Urobilinogen 0.2 Ur Leukocyte Esterase Trace H Urine RBC 1 - 3 H Urine WBC 2 - 5 Ur Epithelial Cells 6 - 8 H Urine Bacteria Many Attending/Attestation - Attestation I have personally seen and examined this patient.: Yes I have fully participated in the care of the patient.: Yes I have reviewed all pertinent clinical information: Yes Notes (Text): 06/30/18 16:12 53 year old female with past medical history of asthma who presents with compla int of cough and shortness of breath. D-dimer was elevated. CT angio negative for large/central PE; shows left lower lobe atelectasis/infiltrate. Will start iv steroids for asthma exacerbation. Continue with duonebs and antibiotics. Follow up on procalcitonin and cultures. Hyperglycemia noted; may be secondary to steroids. Will obtain A1c level to check for underlying diabetes. Beverly Jewell MD Hospitalist.
[2018-06-30 19:21] LABS: VENOUS BLOOD GAS BASE EXCESS -0.2 mmol/L (0.0-2.0); VENOUS BLOOD GAS PO2 37 mm/Hg (30-55); VENOUS BLOOD PH 7.33 (7.32-7.43)
[2018-06-30] MEDS: Albuterol-Ipratrop 3 mg / 0.5 (3 ml) UD IH SCH (20:11)
[2018-06-30] MEDS ORDERED: Pneumococcal 23-Valent Vaccine IM ONE (22:25)
[2018-07-01 01:36] VITALS: O2SAT 94
[2018-07-01] MEDS: Albuterol-Ipratrop 3 mg / 0.5 (3 ml) UD IH SCH ×3 (01:59→13:53)
[2018-07-01 06:21] VITALS: RESP 18
[2018-07-01 06:56] LABS: HEMOGLOBIN 10.6 g/dL (12.0-16.0); LYMPH # 1.8 (1.2-3.4); LYMPH % 10.8 % (22.0-35.0); MEAN CELL VOLUME 84.5 fl (80.0-105.0); MEAN CORPUSCULAR HEMOGLOBIN 27.4 pg (25.0-35.0); MEAN CORPUSCULAR HGB CONC 32.4 g/dl (31.0-37.0); MEAN PLATELET VOLUME 8.5 fl (7.0-11.0); MONO # 0.8 (0.1-0.6); MONO % 4.7 % (1.0-6.0); RBC 3.87 10^6/uL (3.5-6.1); RED CELL DISTRIBUTION WIDTH 14.3 % (11.5-14.5); WHITE BLOOD COUNT 16.6 10^3/uL (4.5-11.0)
[2018-07-01 07:19] LABS: ALBUMIN 3.6 g/dL (3.0-4.8); ALT/SGPT 7 U/L (7-56); AST/SGOT 24 U/L (14-36); BLOOD UREA NITROGEN 11 mg/dL (7-21); CALCIUM 8.8 mg/dL (8.4-10.5); GFR NON-AFRICAN AMERICAN > 60
[2018-07-01] MEDS ORDERED: Azithromycin 250 MG in Sodium Chloride 0.9% 250 ML IVPB SCH (10:00)
[2018-07-01] MEDS ORDERED: MethylPREDNISolone 40 mg Vial IVP SCH (10:00)
[2018-07-01] MEDS ORDERED: cefTRIAXone 1 gm 1 GM/100 ML BAG IVPB SCH (10:00)
[2018-07-01] MEDS: Potassium & Sodium Phosphate PO SCH ×2 (10:35→16:52)
[2018-07-01 12:49] VITALS: BP 146/82; TEMP 97.7
[2018-07-01 16:24] VITALS: PULSE 76
--- NOTE | 2018-07-01 17:01 | CP.PCM.DIS ---
<Mitch Rizo - Last Filed: 07/01/18 16:49> Provider - Provider Date of Admission: 06/30/18 14:35 Attending physician: Beverly Jewell MD Consults: 06/30/18 22:25 Diabetic Education Referral Routine Comment: blood sugar 224 Physician Instructions: Reason For Exam: assess Inpatient COMMUNICATIONS CONSULTANT Core Measures Referral Routine Comment: pneumonia/hyperglycemia Physician Instructions: Reason For Exam: assess Transition In Care/Readmission Reduction Routine Comment: hyperglucemia Physician Instructions: Reason For Exam: assess Time Spent in preparation of Discharge (in minutes): 60 Hospital Course - Lab Results Lab Results: Micro Results 06/30/18 13:00 Blood Blood Culture - Preliminary NO GROWTH AFTER 24 HOURS 06/30/18 12:30 Blood Blood Culture - Preliminary NO GROWTH AFTER 24 HOURS 06/30/18 13:43 Urine,Clean Catch Urine Culture - Preliminary Gram Negative Jaylen Most Recent Lab Values WBC 16.6 10^3/uL (4.5-11.0) H D 07/01/18 06:20 RBC 3.87 10^6/uL (3.5-6.1) 07/01/18 06:20 Hgb 10.6 g/dL (12.0-16.0) L 07/01/18 06:20 Hct 32.7 % (36.0-48.0) L 07/01/18 06:20 MCV 84.5 fl (80.0-105.0) 07/01/18 06:20 MCH 27.4 pg (25.0-35.0) 07/01/18 06:20 MCHC 32.4 g/dl (31.0-37.0) 07/01/18 06:20 RDW 14.3 % (11.5-14.5) 07/01/18 06:20 Plt Count 254 10^3/uL (120.0-450.0) 07/01/18 06:20 MPV 8.5 fl (7.0-11.0) 07/01/18 06:20 Neut % (Auto) 84.5 % (50.0-68.0) H 07/01/18 06:20 Lymph % (Auto) 10.8 % (22.0-35.0) L 07/01/18 06:20 [place] % (Auto) 4.7 % (1.0-6.0) 07/01/18 06:20 Eos % (Auto) 0.0 % (1.5-5.0) L 07/01/18 06:20 Baso % (Auto) 0.0 % (0.0-3.0) 07/01/18 06:20 Lymph # (Auto) 1.8 (1.2-3.4) 07/01/18 06:20 [place] # (Auto) 0.8 (0.1-0.6) H 07/01/18 06:20 Eos # (Auto) 0.0 (0.0-0.7) 07/01/18 06:20 Baso # (Auto) 0.00 K/mm3 (0.0-2.0) 07/01/18 06:20 Absolute Neuts (auto) 14.04 (1.4-6.5) H 07/01/18 06:20 PT 12.3 SECONDS (9.4-12.5) 06/30/18 11:55 INR 1.09 06/30/18 11:55 APTT 26.5 Seconds (26.9-38.3) L 06/30/18 11:55 D-Dimer, Quantitative 324 ng/mlDDU (0-243) H 06/30/18 11:55 pCO2 38 mm/Hg (35-45) 06/30/18 14:52 pO2 37 mm/Hg (30-55) 06/30/18 19:03 HCO3 23.0 mmol/L (21-28) 06/30/18 14:52 ABG pH 7.39 (7.35-7.45) 06/30/18 14:52 ABG Total CO2 24.2 mmol.L (22-28) 06/30/18 14:52 ABG O2 Saturation 99.3 % (95-98) H 06/30/18 14:52 ABG Base Excess -1.7 mmol/L (-2.0-3.0) 06/30/18 14:52 ABG Potassium 3.8 mmol/L (3.6-5.2) 06/30/18 14:52 VBG pH 7.33 (7.32-7.43) 06/30/18 19:03 VBG pCO2 50.0 (40-60) 06/30/18 19:03 VBG HCO3 26.4 mmol/l (21-28) 06/30/18 19:03 VBG Total CO2 27.9 mmol.L (22-28) 06/30/18 19:03 VBG O2 Sat (Calc) 74.0 % (40-65) H 06/30/18 19:03 VBG Base Excess -0.2 mmol/L (0.0-2.0) L 06/30/18 19:03 VBG Potassium 4.4 mmol/L (3.6-5.2) 06/30/18 19:03 Sodium 138.0 mmol/L (132-148) 06/30/18 19:03 Chloride 104.0 mmol/L (98-107) 06/30/18 19:03 Glucose 204 mg/dl (65-105) H 06/30/18 19:03 Lactate 2.9 mmol/L (0.7-2.1) H 06/30/18 19:03 FiO2 21.0 % 06/30/18 19:03 Crit Value Called To Helene silva 06/30/18 19:03 Crit Value Called By Atc 06/30/18 19:03 Blood Gas Notified Time 19206/30/18 19:03 Sodium 139 mmol/L (132-148) 07/01/18 06:20 Potassium 3.8 mmol/L (3.6-5.0) 07/01/18 06:20 Chloride 106 mmol/L (98-107) 07/01/18 06:20 Carbon Dioxide 27 mmol/L (21-33) 07/01/18 06:20 Anion Gap 11 (10-20) 07/01/18 06:20 BUN 11 mg/dL (7-21) 07/01/18 06:20 Creatinine 0.6 mg/dl (0.7-1.2) L 07/01/18 06:20 Est GFR ( Amer) > 60 07/01/18 06:20 Est GFR (Non-Af Amer) > 60 07/01/18 06:20 POC Glucose (mg/dL) 172 mg/dL (65-110) H 07/01/18 16:29 Random Glucose 144 mg/dL (70-110) H 07/01/18 06:20 Hemoglobin A1c 6.1 % (4.2-6.5) 06/30/18 19:03 Calcium 8.8 mg/dL (8.4-10.5) 07/01/18 06:20 Phosphorus 1.8 mg/dL (2.5-4.5) L 06/30/18 19:03 Magnesium 1.8 mg/dL (1.7-2.2) 06/30/18 19:03 Total Bilirubin 0.2 mg/dL (0.2-1.3) 07/01/18 06:20 AST 24 U/L (14-36) 07/01/18 06:20 ALT 7 U/L (7-56) 07/01/18 06:20 Alkaline Phosphatase 67 U/L (38-126) 07/01/18 06:20 Troponin I < 0.01 ng/mL 06/30/18 11:55 NT-Pro-B Natriuret Pep 18.6 pg/mL (0-450) 06/30/18 11:55 Total Protein 7.2 g/dL (5.8-8.3) 07/01/18 06:20 Albumin 3.6 g/dL (3.0-4.8) 07/01/18 06:20 Globulin 3.6 gm/dL 07/01/18 06:20 Albumin/Globulin Ratio 1.0 (1.1-1.8) L 07/01/18 06:20 Lipase 58 U/L (23-300) 06/30/18 11:55 Procalcitonin < 0.05 NG/ML (0.19-0.49) L 06/30/18 19:03 Arterial Blood Potassium 3.8 mmol/L (3.6-5.2) 06/30/18 14:52 Venous Blood Potassium 4.4 mmol/L (3.6-5.2) 06/30/18 19:03 Urine Color Yellow (YELLOW) 06/30/18 13:43 Urine Appearance Clear (CLEAR) 06/30/18 13:43 Urine pH 7.5 (4.7-8.0) 06/30/18 13:43 Ur Specific [place] 1.015 (1.005-1.035) 06/30/18 13:43 Urine Protein Negative mg/dL (<30 mg/dL) 06/30/18 13:43 Urine Glucose (UA) Negative mg/dL (NEGATIVE) 06/30/18 13:43 Urine Ketones Negative mg/dL (NEGATIVE) 06/30/18 13:43 Urine Blood Trace-intact (NEGATIVE) H 06/30/18 13:43 Urine Nitrate Negative (NEGATIVE) 06/30/18 13:43 Urine Bilirubin Negative (NEGATIVE) 06/30/18 13:43 Urine Urobilinogen 0.2 E.U./dL (<1 E.U./dL) 06/30/18 13:43 Ur Leukocyte Esterase Trace Francis/uL (NEGATIVE) H 06/30/18 13:43 Urine RBC 1 - 3 /hpf (0-2) H 06/30/18 13:43 Urine WBC 2 - 5 /hpf (0-6) 06/30/18 13:43 Ur Epithelial Cells 6 - 8 /hpf (0-5) H 06/30/18 13:43 Urine Bacteria Many /hpf (NONE) 06/30/18 13:43 - Hospital Course Hospital Course: Mitch Rizo, PGY-1, Internal Medicine Discharge Summary for Dr. Jewell 53 year old female with past medical history of asthma presented to the ED with complaint of productive cough and SOB for 3 days associated with non-radiating, burning epigastric pain. She noted the SOB feels like her typical asthma exacerbations but her nebulizer treatments and medrol dose pack were not providing complete relief. In the ED, D-dimer was found to be elevated in the 300s. EKG showed normal sinus rhythm without ST changes or signs of acute ischemia. CXR showed no active disease. Chest CT showed subsegmental infiltrate/atelectasis of basilar left lower segment but no pulmonary emboli, effusion or pneumothorax. Lactate was also elevated on this admission at 3.1. This was likely due to anaerobe state of patient from asthma exacerbation rather than from infection. In addition, mild hyperglycemia was likely related to use of medrol dose pack prior to admission. Upon admission, patient was started on IV solumedrol 30 mg BID and duonebs Q6 and Q2 PRN for asthma exacerbation. Patient was started on Azithromycin and Rocephin for suspected CAP. Overnight, patient's respiratory status improved. This morning, patient had significantly improved wheezes on examination and only reported cough with minimal sputum today. Patient had mild leukocytosis likely related to steroid use as patient was afebrile throughout admission and had no signs of infection on physical exam. Patient was found to have gram negative rods in urine. However, as patient is asymptomatic, no antibiotics were started for her. In addition, patient was hypertensive on this admission with blood pressure more than 130/80 as per the new guidelines. As a result, she was started on lisinopril 5 mg daily on discharge. Patient was found to be stable and ready for discharge. Patient was told to follow up with PCP within 3-5 days. Patient was told to take all home medications as prescribed. Patient was told to complete Z pack and medrol dose pack as given on discharge. Patient was told to return to the emergency department if she had any new or concerning symptoms. This is a brief summary of the events that transpired at the hospital. For more information, please refer to the hospital documentation. Discharge Diagnoses Asthma exacerbations Elevated D dimer with ruled out PE Hyperglycemia likely steroid induced Hypertension - Date & Time of H&P Date of H&P: 06/30/18 Time of H&P: 15:56 Discharge Exam - Head Exam Head Exam: ATRAUMATIC, NORMOCEPHALIC - Eye Exam Eye Exam: EOMI, PERRL Pupil Exam: PERRL - Respiratory Exam Respiratory Exam: Clear to PA & Lateral, NORMAL BREATHING PATTERN. absent: Rales, Rhonchi, Wheezes - Cardiovascular Exam Cardiovascular Exam: REGULAR RHYTHM, RRR, +S1, +S2. absent: Clicks, Gallop, Rubs - GI/Abdominal Exam GI & Abdominal Exam: Normal Bowel Sounds, Soft. absent: Distended, Firm, Guarding, Tenderness - Extremities Exam Extremities exam: full ROM, joint swelling, normal capillary refill, normal inspection - Neurological Exam Neurological exam: Alert, CN II-XII Intact, Normal Gait, Oriented x3 - Psychiatric Exam Psychiatric exam: Normal Affect, Normal Mood - Skin Skin Exam: Dry, Intact, Normal Color Discharge Plan - Discharge Medications Prescriptions: Azithromycin [Z-Kayden] 250 mg PO DAILY #6 tab Lisinopril [Prinivil] 5 mg PO DAILY #30 tablet Methylprednisolone [Medrol Dose Pack (21 tabs)] 4 mg PO DAILY #21 mg - Follow Up Plan Condition: GUARDED Disposition: HOME/ ROUTINE Instructions: Pneumonia in Adults, High Blood Pressure in Adults Additional Instructions: Please follow up with your primary care doctor within 3-5 days. Please take all medications as prescribed. Please discontinue medrol dose pack you were taking at home and start medrol dose pack upon discharge. Please take z kayden daily for 6 days to complete course of antibiotics Please start lisinopril 5 mg daily for high blood pressure. Please return to the emergency department if you have any new or concerning symptoms. <Beverly Jewell - Last Filed: 07/01/18 17:12> Provider - Provider Date of Admission: 06/30/18 14:35 Attending physician: Beverly Jewell MD Consults: 06/30/18 22:25 Diabetic Education Referral Routine Comment: blood sugar 224 Physician Instructions: Reason For Exam: assess Inpatient COMMUNICATIONS CONSULTANT Core Measures Referral Routine Comment: pneumonia/hyperglycemia Physician Instructions: Reason For Exam: assess Transition In Care/Readmission Reduction Routine Comment: hyperglucemia Physician Instructions: Reason For Exam: assess Hospital Course - Lab Results Lab Results: Micro Results 06/30/18 13:00 Blood Blood Culture - Preliminary NO GROWTH AFTER 24 HOURS 06/30/18 12:30 Blood Blood Culture - Preliminary NO GROWTH AFTER 24 HOURS 06/30/18 13:43 Urine,Clean Catch Urine Culture - Preliminary Gram Negative Jaylen Most Recent Lab Values WBC 16.6 10^3/uL (4.5-11.0) H D 07/01/18 06:20 RBC 3.87 10^6/uL (3.5-6.1) 07/01/18 06:20 Hgb 10.6 g/dL (12.0-16.0) L 07/01/18 06:20 Hct 32.7 % (36.0-48.0) L 07/01/18 06:20 MCV 84.5 fl (80.0-105.0) 07/01/18 06:20 MCH 27.4 pg (25.0-35.0) 07/01/18 06:20 MCHC 32.4 g/dl (31.0-37.0) 07/01/18 06:20 RDW 14.3 % (11.5-14.5) 07/01/18 06:20 Plt Count 254 10^3/uL (120.0-450.0) 07/01/18 06:20 MPV 8.5 fl (7.0-11.0) 07/01/18 06:20 Neut % (Auto) 84.5 % (50.0-68.0) H 07/01/18 06:20 Lymph % (Auto) 10.8 % (22.0-35.0) L 07/01/18 06:20 [place] % (Auto) 4.7 % (1.0-6.0) 07/01/18 06:20 Eos % (Auto) 0.0 % (1.5-5.0) L 07/01/18 06:20 Baso % (Auto) 0.0 % (0.0-3.0) 07/01/18 06:20 Lymph # (Auto) 1.8 (1.2-3.4) 07/01/18 06:20 [place] # (Auto) 0.8 (0.1-0.6) H 07/01/18 06:20 Eos # (Auto) 0.0 (0.0-0.7) 07/01/18 06:20 Baso # (Auto) 0.00 K/mm3 (0.0-2.0) 07/01/18 06:20 Absolute Neuts (auto) 14.04 (1.4-6.5) H 07/01/18 06:20 PT 12.3 SECONDS (9.4-12.5) 06/30/18 11:55 INR 1.09 06/30/18 11:55 APTT 26.5 Seconds (26.9-38.3) L 06/30/18 11:55 D-Dimer, Quantitative 324 ng/mlDDU (0-243) H 06/30/18 11:55 pCO2 38 mm/Hg (35-45) 06/30/18 14:52 pO2 37 mm/Hg (30-55) 06/30/18 19:03 HCO3 23.0 mmol/L (21-28) 06/30/18 14:52 ABG pH 7.39 (7.35-7.45) 06/30/18 14:52 ABG Total CO2 24.2 mmol.L (22-28) 06/30/18 14:52 ABG O2 Saturation 99.3 % (95-98) H 06/30/18 14:52 ABG Base Excess -1.7 mmol/L (-2.0-3.0) 06/30/18 14:52 ABG Potassium 3.8 mmol/L (3.6-5.2) 06/30/18 14:52 VBG pH 7.33 (7.32-7.43) 06/30/18 19:03 VBG pCO2 50.0 (40-60) 06/30/18 19:03 VBG HCO3 26.4 mmol/l (21-28) 06/30/18 19:03 VBG Total CO2 27.9 mmol.L (22-28) 06/30/18 19:03 VBG O2 Sat (Calc) 74.0 % (40-65) H 06/30/18 19:03 VBG Base Excess -0.2 mmol/L (0.0-2.0) L 06/30/18 19:03 VBG Potassium 4.4 mmol/L (3.6-5.2) 06/30/18 19:03 Sodium 138.0 mmol/L (132-148) 06/30/18 19:03 Chloride 104.0 mmol/L (98-107) 06/30/18 19:03 Glucose 204 mg/dl (65-105) H 06/30/18 19:03 Lactate 2.9 mmol/L (0.7-2.1) H 06/30/18 19:03 FiO2 21.0 % 06/30/18 19:03 Crit Value Called To Helene silva 06/30/18 19:03 Crit Value Called By Atc 06/30/18 19:03 Blood Gas Notified Time 19206/30/18 19:03 Sodium 139 mmol/L (132-148) 07/01/18 06:20 Potassium 3.8 mmol/L (3.6-5.0) 07/01/18 06:20 Chloride 106 mmol/L (98-107) 07/01/18 06:20 Carbon Dioxide 27 mmol/L (21-33) 07/01/18 06:20 Anion Gap 11 (10-20) 07/01/18 06:20 BUN 11 mg/dL (7-21) 07/01/18 06:20 Creatinine 0.6 mg/dl (0.7-1.2) L 07/01/18 06:20 Est GFR ( Amer) > 60 07/01/18 06:20 Est GFR (Non-Af Amer) > 60 07/01/18 06:20 POC Glucose (mg/dL) 172 mg/dL (65-110) H 07/01/18 16:29 Random Glucose 144 mg/dL (70-110) H 07/01/18 06:20 Hemoglobin A1c 6.1 % (4.2-6.5) 06/30/18 19:03 Calcium 8.8 mg/dL (8.4-10.5) 07/01/18 06:20 Phosphorus 1.8 mg/dL (2.5-4.5) L 06/30/18 19:03 Magnesium 1.8 mg/dL (1.7-2.2) 06/30/18 19:03 Total Bilirubin 0.2 mg/dL (0.2-1.3) 07/01/18 06:20 AST 24 U/L (14-36) 07/01/18 06:20 ALT 7 U/L (7-56) 07/01/18 06:20 Alkaline Phosphatase 67 U/L (38-126) 07/01/18 06:20 Troponin I < 0.01 ng/mL 06/30/18 11:55 NT-Pro-B Natriuret Pep 18.6 pg/mL (0-450) 06/30/18 11:55 Total Protein 7.2 g/dL (5.8-8.3) 07/01/18 06:20 Albumin 3.6 g/dL (3.0-4.8) 07/01/18 06:20 Globulin 3.6 gm/dL 07/01/18 06:20 Albumin/Globulin Ratio 1.0 (1.1-1.8) L 07/01/18 06:20 Lipase 58 U/L (23-300) 06/30/18 11:55 Procalcitonin < 0.05 NG/ML (0.19-0.49) L 06/30/18 19:03 Arterial Blood Potassium 3.8 mmol/L (3.6-5.2) 06/30/18 14:52 Venous Blood Potassium 4.4 mmol/L (3.6-5.2) 06/30/18 19:03 Urine Color Yellow (YELLOW) 06/30/18 13:43 Urine Appearance Clear (CLEAR) 06/30/18 13:43 Urine pH 7.5 (4.7-8.0) 06/30/18 13:43 Ur Specific [place] 1.015 (1.005-1.035) 06/30/18 13:43 Urine Protein Negative mg/dL (<30 mg/dL) 06/30/18 13:43 Urine Glucose (UA) Negative mg/dL (NEGATIVE) 06/30/18 13:43 Urine Ketones Negative mg/dL (NEGATIVE) 06/30/18 13:43 Urine Blood Trace-intact (NEGATIVE) H 06/30/18 13:43 Urine Nitrate Negative (NEGATIVE) 06/30/18 13:43 Urine Bilirubin Negative (NEGATIVE) 06/30/18 13:43 Urine Urobilinogen 0.2 E.U./dL (<1 E.U./dL) 06/30/18 13:43 Ur Leukocyte Esterase Trace Francis/uL (NEGATIVE) H 06/30/18 13:43 Urine RBC 1 - 3 /hpf (0-2) H 06/30/18 13:43 Urine WBC 2 - 5 /hpf (0-6) 06/30/18 13:43 Ur Epithelial Cells 6 - 8 /hpf (0-5) H 06/30/18 13:43 Urine Bacteria Many /hpf (NONE) 06/30/18 13:43 Attending/Attestation - Attestation I have personally seen and examined this patient.: Yes I have fully participated in the care of the patient.: Yes I have reviewed all pertinent clinical information, including history, physical exam and plan: Yes Notes (Text): 07/01/18 17:08 53 year old female with past medical history of asthma who presented with complaint of cough and shortness of breath. D-dimer was elevated. CT angio negative for large/central PE; shows left lower lobe atelectasis vs infiltrate. She was started on iv steroids, duonebs and azithromycin with improvement of symptoms. Follow day she had leukocytosis, likely secondary to steroids. Procalcitonin is negative. Hyperglycemia noted likely also secondary to steroids. Hemoglobin A1c was 6.1. Patient is discharged home to follow up at [facility]. Continue with medrol dosepack, albuterol prn and azithromycin. Beverly Jewell MD Hospitalist.
== END 2018-07-01 18:06 | disposition home or self-care (01) | DRG 141 ==
LOC: ED 10:37 → ERH 14:35 → 2RNO 16:54
PROVIDERS: ADMIT Internal Medicine; ATTEND Internal Medicine
PROC: 3E0F7GC Introduction of Other Therapeutic Substance into Respiratory Tract, Via Natural or Artificial Opening (ICD-10-PCS; principal; 2018-07-01)
DX: J45.901 Unspecified asthma with (acute) exacerbation (principal); I10 Essential (primary) hypertension; R73.9 Hyperglycemia, unspecified; T38.0X5A Adverse effect of glucocorticoids and synthetic analogues, initial encounter; R79.89 Other specified abnormal findings of blood chemistry

== ENCOUNTER 2018-07-17 17:17 | Emergency (ER) | payer OTHER ==
[2018-07-17 17:20] VITALS: BMI 50.8
--- NOTE | 2018-07-17 18:20 | ED PDOC ---
Arrival/HPI - General Chief Complaint: Cough, Cold, Congestion Time Seen by Provider: 07/17/18 18:06 Historian: Patient - History of Present Illness Narrative History of Present Illness (Text): 07/17/18 18:17 53 yo F w/ PMH of hypertension and asthma presents complaining of 2 day h/o cough, chest congestion and wheezing. States that she was recently admitted earlier this month for pneumonia, upon d/c, she was Rx z-radha and steroids which she completed. She admits that she did f/u w/ the clinic 1 week ago and was given a Rx for another inhaler, which she did not fill yet and was advised to see a marina porter in [place], but she is unable to get an appointment until Dec. States that her asthma did improve after she left the hospital, but never completely resolved. Otherwise she reports no fever, chills, chest pain, back p ain, shortness of breath, N/V, abd pain. PMD Clinic Past Medical History - Infectious Disease Hx of Infectious Diseases: None - Cardiac Hx Cardiac Disorders: No - Pulmonary Hx Respiratory Disorders: Yes Hx Asthma: Yes (mild) - Neurological Hx Neurological Disorder: No - HEENT Hx HEENT Disorder: No - Renal Hx Renal Disorder: No - Endocrine/Metabolic Hx Endocrine Disorders: No - Hematological/Oncological Hx Blood Disorders: No - Integumentary Hx Dermatological Disorder: No - Musculoskeletal/Rheumatological Hx Musculoskeletal Disorders: No - Gastrointestinal Hx Gastrointestinal Disorders: No - Genitourinary/Gynecological Hx Genitourinary Disorders: No - Psychiatric Hx Psychophysiologic Disorder: No Hx Substance Use: No - Anesthesia Hx Anesthesia: No Hx Anesthesia Reactions: No Hx Malignant Hyperthermia: No Family/Social History Family/Social History: No Known Family HX Smoking Status: Never Smoked Hx Alcohol Use: No Hx Substance Use: No Allergies/Home Meds Allergies/Adverse Reactions: Allergies No Known Allergies Allergy (Verified 07/17/18 17:20) Home Medications: Home Meds Medication Instructions Recorded Confirmed Albuterol HFA [Ventolin HFA 90 1 puff IH PRN PRN 06/30/18 07/17/18 mcg/actuation (8 g)] Review of Systems - Review of Systems Constitutional: absent: Fatigue, Fevers ENT: absent: Rhinorrhea, Sinus Congestion Respiratory: Cough, Wheezing. absent: SOB, Sputum Cardiovascular: absent: Chest Pain, Palpitations, Edema Gastrointestinal: absent: Abdominal Pain, Diarrhea, Vomiting Musculoskeletal: absent: Arthralgias, Back Pain, Neck Pain Skin: absent: Rash, Pruritis, Skin Lesions Neurological: absent: Headache, Dizziness Physical Exam Vital Signs Temp Pulse Resp BP Pulse Ox 07/17/18 17:23 98.9 F 111 H 20 108/73 96 Temperature: Afebrile Blood Pressure: Normal Pulse: Tachycardic Respiratory Rate: Normal Appearance: Positive for: Well-Appearing, Non-Toxic, Comfortable Pain Distress: None Mental Status: Positive for: Alert and Oriented X 3 - Systems Exam Head: Present: Atraumatic, Normocephalic Pupils: Present: PERRL Extroacular Muscles: Present: EOMI Conjunctiva: Present: Normal Ears: Present: Normal, NORMAL TM Mouth: Present: Moist Mucous Membranes Pharnyx: Present: Normal. No: ERYTHEMA, EXUDATE Neck: Present: Normal Range of Motion. No: Meningeal Signs, Lymphadenopathy Respiratory/Chest: Present: Good Air Exchange, Wheezes (+faint expiratory wheezing mostly to the R side), Decreased Breath Sounds. No: Respiratory Distress, Accessory Muscle Use, Rales, Rhonchi Cardiovascular: Present: Regular Rate and Rhythm, Normal S1, S2. No: Murmurs Abdomen: No: Tenderness, Distention, Peritoneal Signs Back: Present: Normal Inspection Upper Extremity: Present: Normal Inspection. No: Cyanosis, Edema Lower Extremity: Present: Normal Inspection. No: Edema Neurological: Present: GCS=15, CN II-XII Intact, Speech Normal Skin: Present: Warm, Dry, Normal Color. No: Rashes Psychiatric: Present: Alert, Oriented x 3, Normal Insight, Normal Concentration Medical Decision Making ED Course and Treatment: 07/17/18 18:21 Previous medical records reviewed, patient was seen in this ER on 06/30/18 for cough, shortness of breath and wheezing. She had a negative trop, negative BNP, normal Chest X-ray, d-dimer was positive, but CTA chest ruled out PE, showed subsegmental infiltrate/atelectasis basilar segment left lower, was then treated for asthma and pneumonia. Plan : - IV - Labs - Solumedrol IV - Duonebs x3 - Chest X-ray - EKG 07/17/18 20:20 EKG: NSR at 87 bpm, (-) acute ST changes, as read by PA. CXR : NAD, as read by PA. Labs reviewed : wbc nl, trop (-). On reevaluation, patient reports improvement of symptoms, denies any CP, SOB or back pain. On exam, patient remains awake alert and oriented 3 in no acute distress. Neck is supple, lungs are clear to auscultation, cardiac regular rate and rhythm. Results d/w the patient. Advised to follow up with the clinic in 1-2 days without fail. Advised to take medication as prescribed. Return to the emergency room at any time for any new or worsening symptoms. Patient states she fully agrees with and understands discharge instructions. States that she agrees with the plan and disposition. Verbalized and repeated discharge instructions and plan. I have given the patient opportunity to ask any additional questions. - PA / INVOICE MACHINE OPERATOR / Resident Statement / has reviewed & agrees with the documentation as recorded. Disposition/Present on Arrival - Present on Arrival Any Indicators Present on Arrival: No History of DVT/PE: No History of Uncontrolled Diabetes: No Urinary Catheter: No History of Decub. Ulcer: No History Surgical Site Infection Following: None - Disposition Have Diagnosis and Disposition been Completed?: Yes Diagnosis: Asthma exacerbation Disposition: HOME/ ROUTINE Disposition Time: 20:30 Patient Plan: Discharge Condition: STABLE Discharge Instructions (ExitCare): Asthma in Adults Additional Instructions: Thank you for letting us take care of you today. You were treated for asthma exacerbation. The emergency medical care you received today was directed at your acute symptoms. If you were prescribed any medication, please fill it and take as directed. It may take several days for your symptoms to resolve. Return to the Emergency Department if your symptoms worsen, do not improve, or if you have any other problems. Please contact your doctor in 2 days for re-evaluation and follow up. Bring any paperwork you were given at discharge with you along with any medications you are taking to your follow up visit. Our treatment cannot replace ongoing medical care by a primary care provider (PCP) outside of the emergency department. Thank you for allowing the [facility] team to be part of your care today. If you had an X-Ray : A Radiologist will review the ED reading if any change in treatment is needed we will contact you. Prescriptions: predniSONE [predniSONE Tab] 40 mg PO DAILY #8 tab Forms: [facility] ([place]inyar[place]anda), WORK NOTE
[2018-07-17] MEDS: Albuterol-Ipratrop 3 mg / 0.5 (3 ml) UD IH SCH ×3 (18:40→19:10)
[2018-07-17 19:13] LABS: BASO # 0.01 K/mm3 (0.0-2.0); BASO % 0.1 % (0.0-3.0); EOS # 0.1 (0.0-0.7); EOS % 0.7 % (1.5-5.0); HEMOGLOBIN 10.8 g/dL (12.0-16.0); MEAN CELL VOLUME 84.3 fl (80.0-105.0); MEAN CORPUSCULAR HEMOGLOBIN 27.3 pg (25.0-35.0); MEAN CORPUSCULAR HGB CONC 32.3 g/dl (31.0-37.0); MEAN PLATELET VOLUME 8.3 fl (7.0-11.0); MONO # 0.4 (0.1-0.6); MONO % 5.1 % (1.0-6.0); RBC 3.96 10^6/uL (3.5-6.1); RED CELL DISTRIBUTION WIDTH 14.5 % (11.5-14.5); WHITE BLOOD COUNT 8.4 10^3/uL (4.5-11.0)
[2018-07-17 19:35] LABS: TROPONIN I < 0.01 ng/mL
[2018-07-17 19:37] LABS: ALB/GLOB RATIO 1.1 (1.1-1.8); ALBUMIN 3.9 g/dL (3.0-4.8); ALT/SGPT 28 U/L (7-56); AST/SGOT 41 U/L (14-36); BLOOD UREA NITROGEN 12 mg/dL (7-21); CALCIUM 8.7 mg/dL (8.4-10.5); GFR NON-AFRICAN AMERICAN > 60
[2018-07-17 19:53] LABS: CK-MB 3.5 ng/mL (0.0-3.6)
[2018-07-17 20:45] VITALS: BP 125/64; PULSE 90; RESP 18; TEMP 98.3; O2SAT 97
--- NOTE | 2018-07-18 10:15 | RAD ---
Date of service: 07/17/2018 HISTORY: cough COMPARISON: Chest radiograph dated 06/30/2018. TECHNIQUE: 1 view obtained. FINDINGS: LUNGS: No active pulmonary disease. PLEURA: No significant pleural effusion identified, no pneumothorax apparent. CARDIOVASCULAR: No aortic atherosclerotic calcification present. Normal cardiac size. No pulmonary vascular congestion. OSSEOUS STRUCTURES: No significant abnormalities. VISUALIZED UPPER ABDOMEN: Normal. OTHER FINDINGS: None. IMPRESSION: No active disease.
--- NOTE | 2018-07-18 11:25 | CARD ---
APPROVED REPORT Date of service: 07/17/2018 EKG Measurement Heart [id number] <Conclusion> Normal sinus rhythm Normal ECG
== END 2018-07-17 20:56 | disposition home or self-care (01) ==
LOC: ED 17:17
DX: J45.901 Unspecified asthma with (acute) exacerbation (principal); I10 Essential (primary) hypertension
CPT/HCPCS: 71045; 80053; 82550; 82553; 83615; 83735; 84484; 85025; 93005; 96374; 99283; J2930